=== PATIENT | male | born 1965 | race Caucasian/White ===

== ENCOUNTER 2016-11-12 11:10 | Emergency (ER) | payer BC, OTHER ==
[~2016-11-12] VITALS: Ht 172.7 cm; Wt 79.4 kg
[2016-11-12 11:15] VITALS: TEMP 36.8; Ht 172.7 cm; Wt 79.4 kg
[2016-11-12] MEDS ORDERED: CLON0.5T3 PO (11:42)
[2016-11-12] MEDS ORDERED: ALBUT/IPRATROP 3MG/0.5MG NEB 3 ML VIAL ONE (11:45)
[2016-11-12 11:58] VITALS: O2SAT 93
[2016-11-12 12:03] LABS: BASO % 1.7 %; BASO ABS # 0.12 K/uL (0-0.2); COMPLETE YES; EOS % 13.3 %; HEMATOCRIT 44.2 % (42-52); LYMPH % 18.2 %; LYMPH ABS # 1.29 K/uL (1.2-3.4); MEAN CELL VOLUME 86.5 fL (80-100); MEAN CORPUSCULAR HEMOGLOBIN 30.9 pg (25-34); MEAN CORPUSCULAR HGB CONC 35.7 g/dl (32-36); MEAN PLATELET VOLUME 10.5 fL (7.4-10.4); MONO % 6.9 %; NEUT % 59.9 %; PLATELET COUNT 285 K/uL (130-400); RED BLOOD COUNT 5.11 M/uL (4.7-6.1); WHITE BLOOD COUNT 7.08 K/uL (4.8-10.8)
[2016-11-12 12:05] VITALS: PULSE 71; O2SAT 96
[2016-11-12 12:14] LABS: CREATININE 1.1 mg/dl (0.60-1.40); POTASSIUM 4.1 mmol/L (3.5-5.1)
--- NOTE | 2016-11-12 12:49 | DIAGNOSTIC IMAGING REPORT ---
CHEST 2 VIEWS ROUTINE CLINICAL HISTORY: ASTHMA, PERSISTENT BRONCHOSPASM ?PNEUMONIA COMPARISON STUDY: No previous studies for comparison. FINDINGS: The bones soft tissues and hemidiaphragms are normal. The cardiomediastinal silhouette is normal. The lungs are clear. The pulmonary vasculature is normal. IMPRESSION: Negative chest. Electronically signed by: Mo Bhardwaj M.D. 11/12/2016 12:47 PM Dictated Date/Time: 11/12/2016 12:47 PM
[2016-11-12] MEDS ORDERED: PRED50TA PO (14:09)
[2016-11-12 14:24] VITALS: BP 131/79; PULSE 71; O2SAT 95
--- NOTE | 2016-11-12 18:44 | EMERGENCY ROOM VISIT NOTE ---
History Report prepared by Jessica: [facility] Under the Supervision of: Dr. Sergei Camargo D.O. First contact with patient: 11:44 Chief Complaint: COUGH Stated Complaint: HARD TO BREATHE Nursing Triage Summary: Pt reports he has been having cough and SOB for 3 weeks. Pt has been seen at [facility] and put on a 5 day course of antibiotics with no help. Today pt reports "I am just having a really hard time beathing, especially at night. I have to sit up. " Pt also complains of chest discomfort. Pt has wheezing throughout. History of Present Illness The patient is a 51 year old male who presents to the Emergency Room with complaints of a constant productive cough with yellow mucous beginning 3 weeks ago. The patient states that he was seen in the [facility] last week and has been on cough medicine since his visit with relief of his cough but not his wheezing. He notes that he has been having a difficult time breathing at night and laying down worsens his symptoms. The patient complains of congestion, wheezing, shortness of breath, upper chest discomfort beginning several weeks ago, upper back pain, ear pain, sore throat that is worse in the morning and then clears up. Pt denies headache, fevers, nausea, vomiting, diarrhea, pain with urination, swelling of legs, anyone around him sick, and recent travel. The patient notes that he has been diagnosed with seasonal asthma. He denies any history of diabetes, heart disease, blood clots, cancer, smoking, recent surgeries, and hypertension. Source of History: patient Onset: 3 weeks ago Position: other (global) Quality: other (cough) Timing: constant Modifying Factors (Worsening): other (Laying down) Associated Symptoms: + SOB, + back pain, + chest pain, + sorethroat, No diarrhea, No fevers, No headache, No nausea, No urinary symptoms, No vomiting Note: The patient complains of congestion, wheezing,ear pain. Pt denies headache, fevers, swelling of legs, anyone around him sick, and recent travel. Review of Systems See HPI for pertinent positives & negatives. A total of 10 systems reviewed and were otherwise negative. Past Medical & Surgical Medical Problems: (1) Seasonal asthma Family History No pertinent family history stated. Social History Smoking Status: Never Smoker Marital Status: single Occupation Status: employed Current/Historical Medications Scheduled Prednisone (Prednisone), 50 MG PO DAILY Scheduled PRN Clonazepam (Klonopin), 0.5 MG PO BID PRN for Anxiety Allergies Coded Allergies: No Known Allergies (Unverified , 11/12/16) Physical Exam Vital Signs Date Time Temp Pulse Resp B/P Pulse Ox O2 Delivery O2 Flow Rate FiO2 11/12/16 14:24 71 18 131/79 95 Room Air 11/12/16 12:43 87 18 132/78 96 Room Air 11/12/16 12:05 71 18 96 Room Air 11/12/16 11:58 93 Room Air 11/12/16 11:27 93 Room Air 11/12/16 11:15 36.8 81 18 170/77 94 Room Air Physical Exam GENERAL: sitting up in bed, disheveled, non-toxic, no acute distress EYE EXAM: normal conjunctiva OROPHARYNX: no exudate, no erythema, lips, buccal mucosa, and tongue normal and mucous membranes are moist NECK: supple, no nuchal rigidity, no adenopathy, non-tender LUNGS: Faint wheezing of bilateral lungs. Normal chest wall mechanics HEART: no murmurs, S1 normal and S2 normal ABDOMEN: abdomen soft, non-tender, normo-active bowel sounds, no masses, no rebound or guarding. BACK: Back is symmetrical on inspection and there is no deformity, no midline tenderness, no CVA tenderness. SKIN: no rashes and no bruising UPPER EXTREMITIES: upper extremities are grossly normal. LOWER EXTREMITIES: No pitting edema. Calves are equal bilaterally NEURO EXAM: Normal sensorium, cranial nerves II-XII grossly intact, normal speech, no gross weakness of arms, no gross weakness of legs. Medical Decision & Procedures ER Provider Diagnostic Interpretation: Xray results per the radiologist and my interpretation. CHEST 2 VIEWS ROUTINE FINDINGS: The bones soft tissues and hemidiaphragms are normal. The cardiomediastinal silhouette is normal. The lungs are clear. The pulmonary vasculature is normal. IMPRESSION: Negative chest. Electronically signed by: Mo Bhardwaj M.D. 11/12/2016 12:47 PM Dictated Date/Time: 11/12/2016 12:47 PM Laboratory Results 11/12/16 11:35 Red Blood Count 5.11, Mean Corpuscular Volume 86.5, Mean Corpuscular Hemoglobin 30.9, Mean Corpuscular Hemoglobin Concent 35.7, Mean Platelet Volume 10.5, Neutrophils (%) (Auto) 59.9, Lymphocytes (%) (Auto) 18.2, Monocytes (%) (Auto) 6.9, Eosinophils (%) (Auto) 13.3, Basophils (%) (Auto) 1.7, Neutrophils # (Auto ) 4.24, Lymphocytes # (Auto) 1.29, Monocytes # (Auto) 0.49, Eosinophils # (Auto ) 0.94, Basophils # (Auto) 0.12 11/12/16 11:35 Test 11/12/16 11:35 11/12/16 12:45 White Blood Count 7.08 K/uL (4.8-10.8) Red Blood Count 5.11 M/uL (4.7-6.1) Hemoglobin 15.8 g/dL (14.0-18.0) Hematocrit 44.2 % (42-52) Mean Corpuscular Volume 86.5 fL (80-100) Mean Corpuscular Hemoglobin 30.9 pg (25-34) Mean Corpuscular Hemoglobin Concent 35.7 g/dl (32-36) Platelet Count 285 K/uL (130-400) Mean Platelet Volume 10.5 fL (7.4-10.4) Neutrophils (%) (Auto) 59.9 % Lymphocytes (%) (Auto) 18.2 % Monocytes (%) (Auto) 6.9 % Eosinophils (%) (Auto) 13.3 % Basophils (%) (Auto) 1.7 % Neutrophils # (Auto) 4.24 K/uL (1.4-6.5) Lymphocytes # (Auto) 1.29 K/uL (1.2-3.4) Monocytes # (Auto) 0.49 K/uL (0.11-0.59) Eosinophils # (Auto) 0.94 K/uL (0-0.5) Basophils # (Auto) 0.12 K/uL (0-0.2) RDW Standard Deviation 39.6 fL (36.4-46.3) RDW Coefficient of Variation 12.5 % (11.5-14.5) Immature Granulocyte % (Auto) 0.0 % Immature Granulocyte # (Auto) 0.00 K/uL (0.00-0.02) Anion Gap 7.0 mmol/L (3-11) Est Creatinine Clear Calc Drug Dose 78.6 ml/min Estimated GFR () 90.9 Estimated GFR (Non- 78.4 BUN/Creatinine Ratio 12.0 (10-20) Calcium Level 9.0 mg/dl (8.5-10.1) Troponin I < 0.015 ng/ml (0-0.045) Pro-B-Type Natriuretic Peptide 9 pg/ml (0-450) Influenza Type A Antigen Neg for Influ A (NEG) Influenza Type B Antigen Neg for Influ B (NEG) Laboratory results per my review. Medications Administered Medications (Trade) Dose Ordered Sig/Jim Route Start Time Stop Time Status Last Admin Dose Admin Albuterol/ Ipratropium (Duoneb) 6 ml STK-MED ONCE .ROUTE 11/12/16 11:45 11/12/16 11:48 DC 11/12/16 12:05 6 ML Prednisone (PredniSONE TAB) 60 mg NOW STAT PO 11/12/16 14:07 11/12/16 14:08 DC 11/12/16 14:20 60 MG ECG Indication: SOB/dyspnea Rate (beats per minute): 72 Rhythm: sinus rhythm Findings: other (Normal axis, poor baseline in anterior leads) ED Course ED COURSE: Vital signs were reviewed and showed hypertension The patients medical record was reviewed The above diagnostic studies were performed and reviewed. ED treatments and interventions as stated above. 1145: Duoneb 6ml INH. 1203: The patient was evaluated in room C11. A complete history and physical examination was performed. 1344: I reevaluated and updated the patient. 1412: Upon reevaluation, the patient is hemodynamically stable.I discussed my findings with the patient and he understands and agrees with the treatment plan. Based on the patients age, coexisting illnesses, exam and lab findings the decision to treat as an outpatient was made. The patient remained stable while under my care. The patient appeared well at the time of discharge. Medical Decision Differential diagnoses includes but is not limited to pneumonia, bronchitis, COPD/Asthma exacerbation, pneumothorax, pulmonary embolism, congestive heart failure, acute coronary syndrome Patient is a 51-year-old male who presents the ER for cough, congestion and runny nose which has been present for the past 3 weeks. He notes that has been checked persistent and has not resolved. His been on several different oral medications for the coughing. He does have a history of asthma and does have a inhaler which has not been improving his symptoms. He does not to chest pain but this is been present for the past week and has been unchanged. Is mainly present with coughing. He is at a low risk for PEs and consequently with his symptoms I did not pursue this any further. Chest x-ray shows no focal infiltrate. Influenza A and B were negative. CBC along with BMP were unremarkable. Troponin was negative with chest pain has been present for greater than several days. BNP was negative. EKG was unremarkable as well. Patient was given nebulizer and felt significant better. His wheezing resolved. I did give him a dose of prednisone and he was discharged to continue his current medications. Discussed with Pt concerning signs and symptoms to watch out for. Pt was instructed to follow up with their PCP and discussed with the patient their option to return to the ED at anytime for persistent or worsening symptoms. The appropriate anticipatory guidance and out- patient management, including indications for return to the emergency department , were explained at length to the patient and understood. Impression Primary Impression: URI (upper respiratory infection) Additional Impression: Asthma exacerbation Scribe Attestation The scribe's documentation has been prepared under my direction and personally reviewed by me in its entirety. I confirm that the note above accurately reflects all work, treatment, procedures, and medical decision making performed by me. Departure Information Dispostion Home / Self-Care Prescriptions Prednisone (PREDNISONE) 50 Mg Tab 50 MG PO DAILY for 4 Days, TAB Prov: Sergei Camargo, DO 11/12/16 Referrals No Doctor, Assigned (PCP) Forms HOME CARE DOCUMENTATION FORM, IMPORTANT VISIT INFORMATION Patient Instructions ED Cough Chronic Cause Unkn, ED URI Viral, My [facility] Additional Instructions Please follow up with your primary care doctor with in the next 24 hours. Any worsening of your symptoms, please return to the ED immediately. This includes any persistent fevers greater than 100.4, worsening of her cough, passing out, inability to eat or drink, or any other concerning signs or symptoms from your standpoint. Please take the steroids as prescribed. Problem Qualifiers Primary Impression: URI (upper respiratory infection) URI type: unspecified viral URI Qualified Codes: J06.9 - Acute upper respiratory infection, unspecified; B97.89 - Other viral agents as the cause of diseases classified elsewhere
== END 2016-11-12 14:26 | disposition home or self-care (01) ==
LOC: C.EDB 11:11 → C.EDC 14:26
DX: J06.9 Acute upper respiratory infection, unspecified (principal); J45.901 Unspecified asthma with (acute) exacerbation; B97.89 Other viral agents as the cause of diseases classified elsewhere; Z79.52 Long term (current) use of systemic steroids

== ENCOUNTER 2017-10-08 16:06 | Emergency (ER) | payer BC, OTHER ==
[~2017-10-08] VITALS: Ht 172.7 cm; Wt 68.2 kg
[~2017-10-08 16:06] MED LIST: CLON0.5T3 PO
[2017-10-08 16:47] VITALS: BP 145/88; PULSE 80; TEMP 36.7; O2SAT 98; Ht 172.7 cm; Wt 68.2 kg
== END 2017-10-08 18:00 | disposition left against medical advice (07) ==
LOC: C.EDB 16:08
DX: R07.89 Other chest pain (principal)

== ENCOUNTER 2025-03-07 09:03 | Inpatient (IN) ==
[2025-03-07] MEDS: LIDOCAINE 5% 1 PATCH TD STA (10:02)
[2025-03-07] MEDS: ONDANSETRON INJ 2 MG/ML 2 ML VIAL IV STA (10:03)
[2025-03-07] MEDS: dexAMETHasone**PF** 10 MG/ML VIAL IV ONE (10:03)
[2025-03-07] MEDS: HYDROmorphone INJ 1 MG/ML SYRINGE IV STA (10:03)
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
[2025-03-07 10:17] LABS: Hematocrit (blood only) 36.4 % (42.0-52.0); Hemoglobin 12.6 g/dl (14.0-18.0); Immature Granulocytes # (auto) 0.05 K/uL (0.01-0.20); Immature Granulocytes % (auto) 0.5 %; Mean Corpuscular Hemoglobin 29.9 pg (25.0-34.0); Mean Corpuscular Volume 86.5 fL (80.0-100.0); Platelet Count 380 K/uL (130-400); RDW Standard Deviation 37.3 fL (36.4-46.3); Red Blood Count 4.21 M/uL (4.70-6.10); White Blood Count 10.47 K/ul (4.8-10.8)
--- NOTE | 2025-03-07 10:33 | XRay Report ---
XR hip LT 2V w pelvis HISTORY: 59 years-old Male pain acute pelvic pain COMPARISON: None TECHNIQUE: AP view the pelvis with 2 views of the left hip FINDINGS: Mild osteoarthritis of the hips. No acute fracture, dislocation or avascular necrosis. Unremarkable s oft tissues. Arterial calcifications. IMPRESSION: No acute fracture or dislocation. ACT 112: Negative or not required by law. The above report was generated using voice recognition software. It may contain grammatical, syntax o r spelling errors. Electronically signed by: Juan Purvis M.D. 03/07/2025 10:32 AM
[2025-03-07 10:41] LABS: Blood Urea Nitrogen 24 mg/dl (6-23); Calcium 9.5 mg/dl (8.6-10.3); Carbon Dioxide 23 mmol/L (21-32); Chloride 100 mmol/L (98-107); Glucose 226 mg/dl (70-99(Fasting))
[2025-03-07] MEDS: SODIUM CHLORIDE 0.9% 1,000 ML IV ONE (11:11)
--- NOTE | 2025-03-07 11:26 | History & Physical Report ---
Date of Service March 07, 2025 Assessment & Plan (1) Left hip pain: (2) Lumbar stenosis: (3) Uncontrolled pain: (4) Ambulatory dysfunction: (5) Radiculopathy: (6) Diabetes mellitus: (7) Lyme arthritis: (8) H/O: HTN (hypertension): (9) Hypomagnesemia: Plan #Left hip/leg pain, Lumbar stenosis, Ambulatory dysfunction - pain/ambulatory dysfunction as outpatient >1 month despite PT/OT/chiropractor/medical management and recent steroid injection this past week. No saddle paresthesia or recent trauma or urinary symptoms. Xray hip without acute fracture. Obs med/surgical Dexamethasone 6mg IV daily Pain control: multimodal - oxycodone 5-10 mg 14h, toradol IV, dilaudid IV prn. Trial lyrica over gabapentin (could consider Cymbalta as well for DM/pain control). Continue lidocaine patch, heat Consideration for pain management Fall precautions PT/OT Defer repeat MRI for now - message to Dr Balderrama to review MRI from this past week, consideration for consult pending review/response to treatment Labs in AM w/ B12 as well for completeness #DM II - recent A1c thought 7-9, given steroid use will put in for SSI/pharmacy consult for assistance Monitor/adjustment as needed w ongoing steroids Consideration for Cymbalta for pain for above #Hypomagnesemia- checked w/ cramping --> LOW 1.4, IV replacement ordered and will monitor on repeat #Possible Lyme/Lyme Arthritis - per patient report, w/ recent Doxy use but no bullseye rash but was suspected w/ joint pain. Holding off Doxy for now, check Lyme/tick smear, consider Ceftriaxone given L shift but was on steroids and will monitor. No fever/chills reported #HTN - continue lisinopril, pain control as needed #Mood - continue escitalopram, consider cymabalta as above for pain control adjunct DVT proph: SCDs for now, add chemoproph if remains inpatient. History of Present Illness Chief Complaint: left hip/pain pain, uncontrolled pain, failure outpatient treatment Primary Care Provider: JUAN TonyC 59 yo male with PMHx significant for HTN, DM II presented with LEFT LEG and HIP pain for > 1 month n duration without significant prior trauma noted. Reports recent MRI outpatient with lumbar stenosis and received injection a couple of days ago. Ongoing pain/ambulatory dysfunction requiring walker for ambulation and also noting rx for Doxycycline on 03/05 for thoughts of Lyme given joint pain however does report pain following taking this about 2 hours following. Does have slight pink bump to his left lower thigh. No bladder/bowel dysfunction/saddle paresthesias. Describes the pain as sharp/shooting and grabbing at times, from left buttocks down to the level of the knee , spares the toe. Some weakness w/ reflex to the LEFT knee compared to the right. He has been using ibuprofen, hydrocodone, gabapentin, tizanidine at home without significant benefit. Some heat but not consistent use. Pain initially 12/10 in the ER, received dose of 1mg Dilaudid along with dexamethasone 10mg IV x 1, toradol 10mg IV x 1 and lidocaine patch for pain in the ER. Currently rating pain ~6/10, still appears mildly uncomfortable. Reports started the gabapentin about 8 days ago this past Sunday, but agreeable to trial Lyrica for now. 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 Believes A1c 7-9 range recently. Pharmacy to be consulted for glycemic. updated on admission at bedside. No recent fever/chills, chest pain, shortness of breath or nausea/vomiting. Questions/concerns addressed at this time. Xray negative for acute fracture. Allergies Allergy/AdvReac Type Severity Reaction Status Date / Time No Known Allergies Allergy Unverified 03/07/25 11:08 Home Medications Medication Instructions Recorded Confirmed Type atorvastatin 10 mg tablet 10 mg PO HS 03/07/25 03/07/25 History doxycycline hyclate 100 mg tablet 100 mg PO Q12H 03/07/25 03/07/25 History dulaglutide 3 mg/0.5 mL 3 mg subcut WK 03/07/25 03/07/25 History subcutaneous pen injector (Trulicity) escitalopram oxalate 10 mg tablet 10 mg PO QAM 03/07/25 03/07/25 History gabapentin 300 mg capsule 300 - 900 mg PO HS 03/07/25 03/07/25 History hydrocodone 5 mg-acetaminophen 325 1 tab PO Q6H PRN Pain 03/07/25 03/07/25 History mg tablet ibuprofen 800 mg tablet 800 mg PO TID PRN Pain 03/07/25 03/07/25 History lisinopril 5 mg tablet 5 mg PO QAM 03/07/25 03/07/25 History metformin 1,000 mg tablet 1,000 mg PO BID 03/07/25 03/07/25 History tizanidine 2 mg tablet 2 mg PO TID PRN Pain 03/07/25 03/07/25 History Past Med/Surg History Problem List (Updated 03/07/25 @ 12:14 by Betty Caceres PA-C) Lumbar stenosis Left hip pain Hypomagnesemia Lyme arthritis Ambulatory dysfunction Uncontrolled pain Radiculopathy H/O: HTN (hypertension) Diabetes mellitus URI (upper respiratory infection) (Acute) Medical History (Updated 03/07/25 @ 12:14 by Betty Caceres PA-C) Asthma exacerbation Seasonal asthma Social History Smoking Status: Never smoker Hx Alcohol Use: Yes Alcohol type: beer and hard liquor Hx Substance Use: No Preferred Language: Luxembourger Consumer Credit Counselor Required: No Beliefs That Will Affect Care: None Current Living Situation: Spouse Other Information That Helps Us Care for You: No Feels Safe at Home: Yes Safety Concerns: Feels Safe At This Time Assistive Devices: Crutches and Glasses Review of Systems 2 Review of Systems: All systems reviewed & are unremarkable except as noted in HPI & below Physical Exam 2 Physical Exam: General: 59yo male resting in bed, in room, mild-mod distress/uncomfortable with position changes but NAD Heent; head atraumatic, normocephalic, mmm, trachea midline Resp; even. unlabored, no wheezing, diminished in the bases but on room air CV: RRR, no signfiicant m/r/g, no pitting edema GI: +BS, soft/NT no garcia MSK/Neuro: decreased DTR L knee compared to the R, slight decreased flexion at that hip (increased pain), dorsiflexion/plantar flexion intact but radicular symptoms LLE Psych: AOx3, cooperative Skin: small pink lesion/healed possible bug bite L lower back/lateral aspect, no cellulitis/drainage or fluid collection Results & Data Results & Data Vital Signs (Past 12 Hours) Vital Signs Temp Pulse Pulse Resp BP BP Pulse Ox 03/07/25 11:03 82 17 143/93 H 96 03/07/25 09:09 36.1 C L 92 H 20 149/76 H 100 O2 Del Method 03/07/25 11:03 Room Air 03/07/25 09:09 Room Air Laboratory Results 03/07/25 09:50 03/07/25 10:53 Mag 1.4 Diagnostic Findings Hip/Pelvis X-Ray 03/07/25 09:27 XR hip LT 2V w pelvis HISTORY: 59 years-old Male pain acute pelvic pain COMPARISON: None TECHNIQUE: AP view the pelvis with 2 views of the left hip FINDINGS: Mild osteoarthritis of the hips. No acute fracture, dislocation or avascular necrosis. Unremarkable soft tissues. Arterial calcifications. IMPRESSION: No acute fracture or dislocation. ACT 112: Negative or not required by law. The above report was generated using voice recognition software. It may contain grammatical, syntax or spelling errors. Electronically signed by: Juan Purvis M.D. 03/07/2025 10:32 AM Supervising Physician Co-Signing Physician Notes Patient seen and examined, chart reviewed, case discussed with Betty Caceres PA-C and I agree with the assessment and plan as above except as otherwise noted Labs and images reviewed Joaquín is a 59-year-old male with history of lumbar stenosis and ambulatory dysfunction who presents with worsening pain/ambulatory dysfunction of 1 month. He has had a steroid injection in the past week however has continued to have back pain and limited ambulation. He received dexamethasone on admission in addition to multimodal pain control. Patient has an MRI report with him. This shows moderate to severe lumbar stenosis without cord enhancement. He is somewhat limited by pain but does not appear to have acute progressive lower extremity weakness although does have some left-sided asymmetry.Seen at the bedside. He reports that he has radiating pain from his left back and buttock down to slightly past his knee. He feels he is both limited by pain and a little bit weak in the left. At the bedside he has 5/5 strength to ankle dorsiflexion/plantarflexion, hip flexion, and knee flexion/extension bilaterally. Qualitatively slightly decreased left ankle strength but is able to give strong effort against resistance. He does not have saddle anesthesia, incontinence, or retention. Ortho is consulted for review. Will be admitted on multimodal pain control and reevaluation as noted. Low suspicion for Lyme. He did have joint pain, no bull's-eye rash. Lyme screen is negative, tickborne smear negative, send out confirmation pending. Agree with assessment and management as above PG Care Time/CCT Total # of Minutes Spent Total Time Spent with Patient: Total time spent is greater than 50% in coordination of care (as documented) at patient's floor/unit and/or counseling patient: Coding Level of Care Code 64880 INT INP/OBS CARE 3/75MIN Diagnoses Left hip pain M25.552 Lumbar stenosis M48.061 Uncontrolled pain R52 Ambulatory dysfunction R26.2 Radiculopathy M54.10 Diabetes mellitus E11.9 Lyme arthritis A69.23 H/O: HTN (hypertension) Z86.79 Hypomagnesemia E83.42
[2025-03-07 11:33] LABS: Potassium 4.6 mmol/L (3.5-5.1); Sodium 133.0 mmol/L (136-145)
[2025-03-07] MEDS ORDERED: PREGABALIN 75 MG CAP PO SCH (11:45)
[2025-03-07 11:50] LABS: Magnesium 1.4 mg/dl (1.7-2.4)
[2025-03-07] MEDS: HYDROmorphone INJ 0.5 MG/0.5 ML SYR IV STA ×2 (11:53→12:42)
[2025-03-07] MEDS: KETOROLAC TROMETHAMINE 15 MG/ML VIAL IV ONE (11:55)
[2025-03-07] MEDS: PREGABALIN 75 MG CAP PO ONE (12:07)
[2025-03-07] MEDS: HYDROmorphone INJ 0.5 MG/0.5 ML SYR IV PRN (13:19)
[2025-03-07] MEDS ORDERED: ONDANSETRON INJ 2 MG/ML 2 ML VIAL IV PRN (13:49)
[2025-03-07] MEDS ORDERED: GLUCAGON FOR INJ 1 MG VIAL SQ PRN (13:49)
[2025-03-07] MEDS ORDERED: GLUCOSE 40% GEL 15 GM TUBE PO PRN (13:49)
[2025-03-07] MEDS ORDERED: CARBOHYDRATES FOR HYPOGLYCEMIA PO PRN (13:49)
[2025-03-07] MEDS ORDERED: PHARMACY GLYCEMIC MGMT CONSULT PRN (13:49)
[2025-03-07] MEDS ORDERED: DEXTROSE 50% 50 ML SYRINGE IV PRN (13:49)
[2025-03-07] MEDS ORDERED: GLUCOSE 10 TAB/TUBE PO PRN (13:49)
[2025-03-07 13:59] LABS: Appearance Urine Clear (Clear); Bacteria Urine Automated None Seen (None Seen); Cast Urine Automated 0-2 /lpf (0-2); Epithelial Cell Urine Auto 0-2 /hpf (0-2); Glucose Urine UA 3+ (Negative); RBC Urine Automated 0-2 /hpf (0-2); WBC Urine Automated 0-5 /hpf (0-5)
[2025-03-07] MEDS: MAGNESIUM SULFATE / D5W 1 GM/100 ML BAG IV SCH (14:20)
--- NOTE | 2025-03-07 14:57 | Pharmacy Report ---
Pharmacy Glycemic Short Note 2 - Date of Service March 07, 2025 - Glycemic Short BSG Results (Last 24 hours): 03/07/25 03/07/25 03/07/25 09:50 12:01 13:53 Glucose 226 H POC Glucose 256 H 343 H* 03/07/25 13:57 Glucose POC Glucose 320 H* OUTPATIENT ANTIDIABETIC REGIMEN: * Trulicity 3mg SQ QTH * metformin 1000mg PO BID * HbA1c pending (03/03/25) ASSESSMENT: * Joaquín is a 59 year old male admitted for hip pain with a history of type 2 diabetes mellitus. Reportedly per hospitalist, recent HbA1c 7-9%, will repeat in AM. Pharmacy has been consulted to assist with glycemic management while inpatient. * BSG upon admission elevated, received 10mg IV dexamethasone, BSGs continued to climb. Dexamethasone 6mg IV daily ordered. Will initiated basal insulin at 0.4units/kg now and then daily to help cover steroid induced hyperglycemia. * NovoLog at a weight based stress of 3. PLAN FOR INPATIENT GLYCEMIC CONTROL: * Hold outpatient oral diabetes medications * Basal insulin * Lantus 30 units SQ daily * Bolus insulin * NovoLog per scale ACHS or Q6hrs while NPO * Goal Range: Low 110 mg/dL - High 140 mg/dL * Correction Factor: 20 mg/dL/unit * Nutritional / Prandial insulin per carb ratio of 1 unit per 7 grams CHO consumed
[2025-03-07] MEDS: INSULIN ASPART PER UNIT CHARGE SC ONE ×2 (15:01→17:28)
[2025-03-07] MEDS: LANTUS PER UNIT CHARGE SC SCH ×2 (15:01→21:16)
[2025-03-07] MEDS: KETOROLAC TROMETHAMINE 15 MG/ML VIAL IV PRN (16:29)
[2025-03-07] MEDS: INSULIN ASPART PER UNIT CHARGE SC SCH (17:02)
[2025-03-07] MEDS: ACETAMINOPHEN 325 MG TAB PO PRN (19:30)
[2025-03-07] MEDS: PREGABALIN 75 MG CAP PO SCH (21:17)
[2025-03-07] MEDS: REMOVE LIDODERM PATCH SCH ×2 (21:34→21:35)
[2025-03-07] MEDS: FAMOTIDINE 10 MG TABLET PO SCH (21:34)
[2025-03-08] MEDS: HYDROmorphone INJ 0.5 MG/0.5 ML SYR IV PRN (05:17)
[2025-03-08 06:00] LABS: Hematocrit (blood only) 32.9 % (42.0-52.0); Hemoglobin 11.3 g/dl (14.0-18.0); Mean Corpuscular Hemoglobin 29.5 pg (25.0-34.0); Mean Corpuscular Volume 85.9 fL (80.0-100.0); Platelet Count 360 K/uL (130-400); RDW Standard Deviation 36.0 fL (36.4-46.3); Red Blood Count 3.83 M/uL (4.70-6.10); White Blood Count 10.42 K/ul (4.8-10.8)
[2025-03-08 06:16] LABS: Anion Gap 5.0 (3-11); Blood Urea Nitrogen 30.0 mg/dl (6-23); Calcium 8.9 mg/dl (8.6-10.3); Carbon Dioxide 25.0 mmol/L (21-32); Chloride 104.0 mmol/L (98-107); Creatinine Clr Calc Pharmacy 90.6 ml/min; Glucose 156.0 mg/dl (70-99(Fasting)); Potassium 4.6 mmol/L (3.5-5.1); Sodium 134.0 mmol/L (136-145)
[2025-03-08 06:34] LABS: Thyroid Stimulating Hormone 0.368 uIu/ml (0.300-4.500)
[2025-03-08 08:02] LABS: Hemoglobin A1C 9.0 % (4.5-5.6)
[2025-03-08] MEDS: dexAMETHasone 6 MG in SYRINGE 0 ML IV SCH (08:06)
--- NOTE | 2025-03-08 08:14 | Hospitalist Progress Note ---
Date of Service March 08, 2025 Assessment & Plan (1) Left hip pain: (2) Lumbar stenosis: (3) Uncontrolled pain: (4) Ambulatory dysfunction: (5) Radiculopathy: (6) Diabetes mellitus: (7) Lyme arthritis: (8) H/O: HTN (hypertension): (9) Hypomagnesemia: (10) B12 deficiency: Plan #Left hip/leg pain, Lumbar stenosis, Ambulatory dysfunction - pain/ambulatory dysfunction as outpatient >1 month despite PT/OT/chiropractor/medical management and recent steroid injection this past week and recent MRI (no cord compression noted) No saddle paresthesia or recent trauma or urinary symptoms. Xray hip without acute fracture. Continue Dexamethasone 6mg IV daily Dr Balderrama consult pending Continue pain control: * Oxycodone 5-10mg, toradol IV, dilaudid 0.5-1mg, tizanidine prn spasm * Lyrica 75mg BID over prior gabapentin to see if helpful -- titrate up in AM as able * Continue lidocaine patch, heat * Consider Cymbalta vs pain management consult pending ortho evaluation Bowel regimen w/ miralax daily, colace BID, senna HS added. +BS but no BM since admission Continue fall precautions, PT/OT consults pending Monitor exam/response to treatment above #DM II - recent A1c thought 7-9, repeat w/ AM labs at 9.0 Home trulicity on hold, pharmacy on consult given ongoing steroids for pain control w/ elevated BSGs to 300s last evening --> Improved, POC 125 this morning and monitoring Consideration for Cymbalta as above Likely need adjustment to regimen at discharge #Hypomagnesemia- checked w/ cramping --> LOW 1.4 IV replacement ordered and repeat added for today/further replacement as needed #B12 deficiency- checked w/ neuropathy B12 LOW 172-->IM 1000mcg x 3 ordered, rec to continue PO at dc #Possible Lyme/Lyme Arthritis - per patient report, w/ recent Doxy use but no bullseye rash but was suspected w/ joint pain however no fever/chills reported and has been afebrile. 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 Babesia PCR pending Defer ongoing abx at this time #HTN - continue lisinopril, pain control as needed -- BP 147/74 and will monitor #Mood - continue escitalopram -consider Cymbalta as above for pain control adjunct DVT proph: SCDs for now, add chemoproph if remains inpatient pending ortho eval. pepcid BID for GI proph w/ steroids Dispo: continued inpatient stay for ongoing pain control Admission and Anticipated Discharge Date Admission Date: March 07, 2025 Subjective Evaluated this morning, reported was feeling better until this morning with pain starting again to his left leg, currently reports just got oxycodone and heating pad. Passing gas but no BM since admission, bowel regimen to be added. Ortho consult pending but will continue conservative treatment for now until evaluated. No saddle paresthesias, no loss of bowel/bladder. No fever/chills, CP/SOB. Questions/concerns addressed at this time Physical Exam 2 Physical Exam: General: 59yo male resting in bed, heating pad to left thigh, NAD Heent; head atraumatic, normocephalic, mmm, trachea midline Resp; even. unlabored, no wheezing, diminished in the bases but on room air CV: RRR, no significant m/r/g, no pitting edema GI: +BS, soft/NT no garcia MSK/Neuro: slightly decreased DTR L knee compared to the R, slight decreased flexion at that hip (due to increased pain), dorsiflexion/plantar flexion intact but radicular symptoms LLE from buttocks Psych: AOx3, cooperative Results & Data Results & Data Vital Signs (Past 12 Hours) Vital Signs Temp Pulse Resp BP Pulse Ox O2 Del Method 03/08/25 07:13 36.5 C 68 16 147/74 H 99 Room Air Laboratory Results 03/08/25 05:18 03/08/25 05:18 Mag pending TSH 0.368 B12 172 Lyme negative smear neg for inclusion bodies for anaplasmosis smear Babesia PCR pending PG Care Time/CCT Total # of Minutes Spent Total Time Spent with Patient: Total time spent is greater than 50% in coordination of care (as documented) at patient's floor/unit and/or counseling patient: Coding Level of Care Code 26210 SUB INP/OBS CARE 3/50MIN Diagnoses Left hip pain M25.552 Lumbar stenosis M48.061 Uncontrolled pain R52 Ambulatory dysfunction R26.2 Radiculopathy M54.10 Diabetes mellitus E11.9 Lyme arthritis A69.23 H/O: HTN (hypertension) Z86.79 Hypomagnesemia E83.42 B12 deficiency E53.8
[2025-03-08 08:33] LABS: Magnesium 2.1 mg/dl (1.7-2.4)
[2025-03-08] MEDS: ESCITALOPRAM OXALATE 10 MG TAB PO SCH (08:34)
[2025-03-08] MEDS: LIDOCAINE 5% 1 PATCH TD SCH (08:34)
[2025-03-08] MEDS: POLYETHYLENE (MIRALAX) 17 GM PACK PO SCH (08:41)
[2025-03-08] MEDS: DOCUSATE SODIUM 100 MG CAP PO SCH (08:42)
[2025-03-08] MEDS ORDERED: DEXAMETHASONE SOD INJ 4 MG/ML VIAL IV SCH (09:00)
[2025-03-08] MEDS: CYANOCOBALAMIN 1000 MCG/ML VIAL IM SCH (09:25)
--- NOTE | 2025-03-08 11:24 | Orthopedic Consultation ---
Date of Consultation March 08, 2025 Assessment & Plan (1) Lumbar disc herniation: Assessment #1 lumbar spondylosis with radiculopathy. #2 L3-L4 foraminal extraforaminal disc herniation on the left. Plan at length yesterday with the patient reviewing his MRI findings and clinical course but this time he has severe spinal stenosis L4-L5 with subarticular stenosis. L3-L4 he has moderate midline stenosis facet operatively but large foraminal extraforaminal disc on the left. This undoubtedly contributes to his clinical presentation. He is failed extensive course of nonoperative care is essentially nonfunctional would like to consider surgical invention. Would require a lumbar decompression and fusion L3-L4 L4-L5 this would allow us to adequately decompress the canal address the foraminal disc herniation and stabilize his spine. Risk benefits pros cons and alternatives were all in detail. Risk include but not limited to anesthesia blindness stroke paralysis nerve damage blood loss requiring transfusion infection requiring reoperation events of the improvement of his back and leg pain. At this time we will make him n.p.o. after midnight plan for surgery soon as possible. History of Present Illness Reason for Consultation: Back and left leg pain Attending Physician: Yoni Mcelroy MD History of Present Illness This is a 59-year-old male that is struggling with severe left leg pain. He does have a history of lumbosacral back pain rating to the bilateral buttocks. But over the past month it became severe into the left groin and left thigh. He is undergone lumbar injections without any improvement. He attempted a course of physical therapy but this exacerbated his pain. 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 He does have a history of chronic back issues with the onset of this now acute radiculopathy Allergies Allergy/AdvReac Type Severity Reaction Status Date / Time No Known Allergies Allergy Unverified 03/07/25 11:08 Home Medications Medication Instructions Recorded Confirmed Type atorvastatin 10 mg tablet 10 mg PO HS 03/07/25 03/07/25 History doxycycline hyclate 100 mg tablet 100 mg PO Q12H 03/07/25 03/07/25 History dulaglutide 3 mg/0.5 mL 3 mg subcut WK 03/07/25 03/07/25 [facility] escitalopram oxalate 10 mg tablet 10 mg PO QAM 03/07/25 03/07/25 History gabapentin 300 mg capsule 300 - 900 mg PO HS 03/07/25 03/07/25 History hydrocodone 5 mg-acetaminophen 325 1 tab PO Q6H PRN Pain 03/07/25 03/07/25 History mg tablet ibuprofen 800 mg tablet 800 mg PO TID PRN Pain 03/07/25 03/07/25 History lisinopril 5 mg tablet 5 mg PO QAM 03/07/25 03/07/25 History metformin 1,000 mg tablet 1,000 mg PO BID 03/07/25 03/07/25 History tizanidine 2 mg tablet 2 mg PO TID PRN Pain 03/07/25 03/07/25 History Patient History Medical History Asthma exacerbation Seasonal asthma Social History Smoking Status: Never smoker Hx Alcohol Use: Yes Alcohol type: beer and hard liquor Hx Substance Use: No Preferred Language: Azerbaijani 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 I was able to have him stand for me. He is able to stand on his toes and heels with some assistance. There is marked deficits to the left quadricep compared to the right. D10 reflexes diminished. Results & Data Vital Signs (Past 12 Hours) Vital Signs Temp Pulse Resp BP Pulse Ox O2 Del Method 03/08/25 07:13 36.5 C 68 16 147/74 H 99 Room Air
[2025-03-08] MEDS: SENNA 8.6 MG TAB PO SCH (21:02)
[2025-03-08] MEDS: HYDROmorphone INJ 1 MG/ML SYRINGE IV PRN (21:08)
[2025-03-09] MEDS: INSULIN ASPART PER UNIT CHARGE SC SCH ×2 (05:54→12:30)
[2025-03-09] MEDS: SODIUM CHLORIDE 0.9% 1,000 ML IV SCH (06:43)
[2025-03-09 06:55] LABS: Anion Gap 8.0 (3-11); Blood Urea Nitrogen 30.0 mg/dl (6-23); Calcium 8.8 mg/dl (8.6-10.3); Carbon Dioxide 25.0 mmol/L (21-32); Chloride 103.0 mmol/L (98-107); Creatinine Clr Calc Pharmacy 81.3 ml/min; Glucose 122.0 mg/dl (70-99(Fasting)); Magnesium 1.7 mg/dl (1.7-2.4); Potassium 4.3 mmol/L (3.5-5.1); Sodium 136.0 mmol/L (136-145)
[2025-03-09] MEDS: LANTUS PER UNIT CHARGE SC ONE (08:14)
--- NOTE | 2025-03-09 08:41 | Hospitalist Progress Note ---
Date of Service March 09, 2025 Assessment & Plan (1) Left hip pain: (2) Lumbar stenosis: (3) Uncontrolled pain: (4) Ambulatory dysfunction: (5) Radiculopathy: (6) Diabetes mellitus: (7) Lyme arthritis: (8) H/O: HTN (hypertension): (9) Hypomagnesemia: (10) B12 deficiency: Plan This patient is a 59-year-old male who presented on 03/09 for lumbar radiculopathy and ambulatory dysfunction. #Left hip/leg pain, Lumbar stenosis, Ambulatory dysfunction Pain/ambulatory dysfunction as outpatient >1 month despite PT/OT/chiropractor/medical management and recent steroid injection this past week and recent MRI (no cord compression noted) No saddle paresthesia or recent trauma; no urinary incontinence or urinary symptoms Xray hip without acute fracture Continue Dexamethasone 6mg IV daily Ortho surgery consult appreciated Will plan for OR with Dr. Balderrama on 03/10 N.p.o. at midnight Continue pain control: * Acetaminophen PRN, Toradol IV PRN, Dilaudid IV 0.5-1.0mg PRN, tizanidine PRN spasms * Lyrica 75mg BID over prior gabapentin to see if helpful * Continue lidocaine patch, heat * Consider Cymbalta vs pain management consult pending ortho evaluation Bowel regimen w/ miralax daily, colace BID, senna HS added. +BS but no BM since admission Continue fall precautions, PT/OT consults pending Monitor exam/response to treatment above #DM II Last A1c at 9.0% on 03/08/2025 Hold [facility] glycemic consult appreciated given ongoing steroids for pain control Lantus + SSI T2DM diet for now, then n.p.o. at midnight BSG ACHS for now, then BSG q6h starting at midnight Adjust regimen as needed #Hypomagnesemia-(resolved) Magnesium low 1.4 on arrival; now WNL on 03/09 IV replacement PRN #B12 deficiency- checked w/ neuropathy B12 LOW 172-->IM 1000mcg x 3 ordered Recommend to continue PO at dc #Possible Lyme/Lyme Arthritis - per patient report, w/ recent Doxy use but no bullseye rash but was suspected w/ joint pain however no fever/chills reported and has been afebrile. Did have recent steroids [employer] Holding off Doxy for now, checked Lyme/tick smear -- Lyme negative, smear unimpressive. Babesia PCR still pending on 03/09 Defer ongoing abx at this time #HTN - continue lisinopril #Mood - continue escitalopram Consider Cymbalta as above for pain control adjunct DVT proph: SCDs for now, add chemical PPx if remains inpatient after surgery Pepcid BID for GI PPx w/ steroids Dispo: continued stay on MedSurg; plan for OR with Dr. Balderrama on 03/10 Admission and Anticipated Discharge Date Admission Date: March 07, 2025 Subjective Mr. Montano is laying flat in bed this morning. He reports that he slept okay, but was intermittently woken up due to the pain. Prior to coming to the hospital, he was regularly taking hydrocodone, and ibuprofen as needed for the pain, but this was not alleviating his pain. At present, he is experiencing 7/10 lower back pain with radiation down the left hip to the knee. Constant pain, that is exacerbated by movements. The pain medications given in the hospital have been helping to control his pain, albeit temporarily. He will occasionally have "spikes" with muscle spasms. No prior history of back surgeries. He denies urinary continence or saddle anesthesia. No cardiac history: No history of VA, stroke, CHF, or issues with his kidneys. ROS: Patient endorses lower back pain with radiation down the left leg to the knee, and intermittent numbness/tingling around the knee. Patient denies fever, chills, night sweats, dizziness/lightheadedness when getting up to the bathroom, headaches, chest pain, chest palpitations, SOB, cough, abdominal pain, N/V/D, changes in urinary or bowel habits, urinary continence, or saddle anesthesia. Review of Systems Review of Systems: See HPI above Physical Exam Physical Exam: General: Mild distress secondary to lower back and left leg pain; pleasant affect non-toxic appearing; well-nourished; cooperative; SpO2 99% on RA HEENT: normocephalic, atraumatic; no scleral icterus; PERRLA; vision and hearing grossly intact Neck: supple; no lymphadenopathy; trachea midline Skin: warm, dry without signs of tenting; no cyanosis; no rashes, bruising, lesions, or erythema noted CV: chest wall NTP; RRR; S1/S2 normal; no murmurs/rubs/gallops; pulses intact and symmetric at radial, DP, and PT Lungs: no acute respiratory distress; symmetrical chest wall expansion; clear breath sounds across all lung poon w/o adventitious sounds; no wheezing ABD: Soft, NTP; BS present; no rebound/guarding; no distention MSK: no tics or fasciculations; no edema noted in the LEs b/l, nonerythematous LEs: Patient demonstrates ability to wiggle toes, plantarflex, dorsiflex, and bend knees bilaterally (albeit with pain in the left leg) Neuro: A&Ox3; normal mood and affect; fluent speech; no focal deficits; sensation is intact and symmetric in the feet bilaterally up until the knee, then he reports diminished sensation in the left knee when compared to the right Results & Data Results & Data Vital Signs (Past 12 Hours) Vital Signs Temp Pulse Resp BP Pulse Ox O2 Del Method 03/09/25 07:24 36.8 C 70 18 167/75 H 99 Room Air PG Care Time/CCT Total # of Minutes Spent Total Time Spent with Patient: Total time spent is greater than 50% in coordination of care (as documented) at patient's floor/unit and/or counseling patient: Coding [place] [address] SUB INP/OBS CARE 2/35MIN Patient Type Established History Comprehensive Exam Comprehensive Medical Decision Making Moderate Complexity Diagnoses Left hip pain M25.552 Lumbar stenosis M48.061 Uncontrolled pain R52 Ambulatory dysfunction R26.2 Radiculopathy M54.10 Diabetes mellitus E11.9 Lyme arthritis A69.23 H/O: HTN (hypertension) Z86.79 Hypomagnesemia E83.42 B12 deficiency E53.8
--- NOTE | 2025-03-09 09:20 | Orthopedic Progress Note ---
Date of Service March 09, 2025 Assessment & Plan (1) Lumbar disc herniation: Plan: Assessment lumbar disc herniation with radiculopathy and progressive neurologic deficit. Plan at this time we are planning for surgery tomorrow. He would require a lumbar decompression and fusion L3-L4 L4-L5. All questions were addressed. I will make him n.p.o. after midnight. Admission and Anticipated Discharge Date Admission Date: March 07, 2025 Subjective Patient continues to struggle with severe back and left leg pain with weakness. Physical Exam Physical Exam: On exam he still demonstrates significant quad deficit on the left. Severe discomfort with ambulation. Results & Data Vital Signs (Past 12 Hours) Vital Signs Temp Pulse Resp BP Pulse Ox O2 Del Method 03/09/25 07:24 36.8 C 70 18 167/75 H 99 Room Air
[2025-03-09] MEDS ORDERED: Nursing to Pharmacy Communication SCH (09:30)
--- NOTE | 2025-03-09 12:39 | Pharmacy Report ---
Pharmacy Glycemic Short Note 2 - Date of Service March 09, 2025 - Glycemic Short BSG Results (Last 24 hours): 03/08/25 03/08/25 03/09/25 16:25 20:46 05:46 Glucose 122 H POC Glucose 251 H 88 03/09/25 03/09/25 03/09/25 05:53 11:51 11:55 Glucose POC Glucose 123 H 306 H* 343 H* OUTPATIENT ANTIDIABETIC REGIMEN: * Trulicity 3mg SQ QTH * metformin 1000mg PO BID * HbA1c pending (03/03/25) ASSESSMENT: 03/08 * Was NPO at midnight last night for possible surgical intervention today. Surgery now anticipated tomorrow. Patient switched to T2DM this AM after AM propmt for Novolog correction was appropriately not administered/needed. Then ate breakfast - CHO not covered due to lack of prompt. Patient also remains on dexamethasone. Combo of which precipated significant hyperglycemia prior to lunch * BSG below goal at HS yesterday after tightening CHO ratio at lunch. Also scheduled for surgery tomorrow. Will loosen CHO ratio back to what it was yesterday AM. * AM fasting BSG in goal range. However, will be NPO tomorrow. Patient not on basal insulin at home. Will therefore split BID and slightly reduce dose today. 03/07 * Joqauín is a 59 year old male admitted for hip pain with a history of type 2 diabetes mellitus. Reportedly per hospitalist, recent HbA1c 7-9%, will repeat in AM. Pharmacy has been consulted to assist with glycemic management while inpatient. * BSG upon admission elevated, received 10mg IV dexamethasone, BSGs continued to climb. Dexamethasone 6mg IV daily ordered. Will initiated basal insulin at 0.4units/kg now and then daily to help cover steroid induced hyperglycemia. * NovoLog at a weight based stress of 3. PLAN FOR INPATIENT GLYCEMIC CONTROL: * Hold outpatient oral diabetes medications * Basal insulin * Lantus 15 units SQ x1 this AM. Additional 5-10 units tonight, depending on BSG * Bolus insulin * NovoLog per scale ACHS or Q6hrs while NPO * Goal Range: Low 110 mg/dL - High 140 mg/dL * Correction Factor: 20 mg/dL/unit * Nutritional / Prandial insulin per carb ratio of 1 unit per 7 grams CHO consumed
[2025-03-10] MEDS: SODIUM CHLORIDE 0.9% 1,000 ML IV SCH (05:58)
[2025-03-10] MEDS: INSULIN ASPART PER UNIT CHARGE SC SCH ×2 (06:04→21:13)
[2025-03-10 06:40] LABS: Hematocrit (blood only) 36.8 % (42.0-52.0); Hemoglobin 12.5 g/dl (14.0-18.0); Mean Corpuscular Hemoglobin 29.6 pg (25.0-34.0); Mean Corpuscular Volume 87.2 fL (80.0-100.0); Platelet Count 426 K/uL (130-400); RDW Standard Deviation 37.9 fL (36.4-46.3); Red Blood Count 4.22 M/uL (4.70-6.10); White Blood Count 10.26 K/ul (4.8-10.8)
[2025-03-10 06:57] LABS: Anion Gap 9.0 (3-11); Blood Urea Nitrogen 33.0 mg/dl (6-23); Calcium 9.4 mg/dl (8.6-10.3); Carbon Dioxide 25.0 mmol/L (21-32); Chloride 102.0 mmol/L (98-107); Creatinine Clr Calc Pharmacy 71.0 ml/min; Glucose 121.0 mg/dl (70-99(Fasting)); Potassium 4.5 mmol/L (3.5-5.1); Sodium 136.0 mmol/L (136-145)
[2025-03-10] MEDS ORDERED: DEXAMETHASONE SOD INJ 4 MG/ML VIAL ONE (09:51)
[2025-03-10] MEDS ORDERED: MIDAZOLAM HCL 1 MG/ML 2ML VIAL ONE (09:51)
[2025-03-10] MEDS ORDERED: LIDOCAINE 2% 2 ML VIAL/AMP(20MG/ML) INFIL ONE (09:51)
[2025-03-10] MEDS ORDERED: PROPOFOL IV EMULSION 10 MG/ML 20 ML VIAL IV ONE (09:51)
[2025-03-10] MEDS ORDERED: ONDANSETRON INJ 2 MG/ML 2 ML VIAL ONE (09:51)
--- NOTE | 2025-03-10 10:30 | History & Physical Bridge Note ---
Date of Service March 10, 2025 History & Physical Bridge Note I have examined the patient, reviewed the History & Physical and in the interval since the performance of the History & Physical I have noted the following changes of clinical significance: no changes noted Patient continues to have severe pain requiring narcotic medications. He has gross neurologic deficit that is not improved. I am recommending emergent decompression fusion L3-L5 to prevent permanent neurologic damage and loss of function.
[2025-03-10] MEDS ORDERED: ROCURONIUM BROMIDE 10 MG/ML 5 ML VIAL IV ONE ×3 (10:57→14:00)
[2025-03-10] MEDS: LACTATED RINGER'S 1,000 ML IV ONE (11:02)
[2025-03-10] MEDS ORDERED: ePHEDrine sulfate 50 MG/5 ML SYR ONE (12:45)
[2025-03-10] MEDS ORDERED: SUGAMMADEX SODIUM 200 MG/2 ML VIAL IV ONE (13:16)
[2025-03-10] MEDS: BUPIVACAINE/EPINEPHRINE 0.5% MPF 1:200,000 30 ML VIAL ONE (13:42)
[2025-03-10] MEDS: FLOSEAL HEMOSTATIC MATRIX 10ML TOP ONE (14:01)
--- NOTE | 2025-03-10 14:02 | Hospitalist Progress Note ---
Date of Service March 10, 2025 Assessment & Plan (1) Lumbar stenosis: (2) Ambulatory dysfunction: (3) Diabetes mellitus: Plan This patient is a 59-year-old male who presented on 03/09 for lumbar radiculopathy and ambulatory dysfunction. Underwent lumbar decompression with Dr. Balderrama on 03/10. #Left hip/leg pain, Lumbar stenosis, Ambulatory dysfunction Pain/ambulatory dysfunction as outpatient >1 month despite PT/OT/chiropractor/medical management and recent steroid injection this past week and recent MRI (no cord compression noted) No saddle paresthesia or recent trauma; no urinary incontinence or urinary symptoms Xray hip without acute fracture. Continue Dexamethasone 6mg IV daily Orthopedic surgery consult appreciated Patient underwent L3-L5 decompression and fusion with Dr. Balderrama on 03/10 Continue pain control: * Acetaminophen PRN, Toradol IV PRN, Dilaudid IV 0.5-1.0mg PRN, tizanidine PRN spasms * Lyrica 75mg BID over prior gabapentin to see if helpful * Continue lidocaine patch, heat * Consider Cymbalta vs pain management consult pending ortho evaluation Bowel regimen w/ miralax daily, colace BID, senna HS added. +BS but no BM since admission PT/OT evaluations appreciated Fall precautions #DM II Last A1c at 9.0% on 03/08/2025 Hold [facility] glycemic consult appreciated given ongoing steroids for pain control Lantus + SSI T2DM diet BSG ACHS Adjust regimen as needed #Hypomagnesemia-(resolved) Magnesium low 1.4 on arrival; now WNL on 03/09 IV replacement PRN #B12 deficiency- checked w/ neuropathy B12 LOW 172-->IM 1000mcg x 3 ordered Recommend to continue PO at dc #Possible Lyme/Lyme Arthritis - per patient report, w/ recent Doxy use but no bullseye rash but was suspected w/ joint pain however no fever/chills reported and has been afebrile. Did have recent steroids GROUND [employer] Holding off Doxy for now, checked Lyme/tick smear -- Lyme negative, smear unimpressive. Babesia PCR still pending on 03/09 Defer ongoing abx at this time #HTN - continue lisinopril #Mood - continue escitalopram Consider Cymbalta as above for pain control adjunct #Anemia-with B12 deficiency likely contributing. TSH checked this admission and is normal - Check iron studies, folate in the morning - Follow CBC DVT proph: SCDs for now following spinal surgery Pepcid BID for GI PPx w/ steroids [facility] Admission and Anticipated Discharge Date Admission Date: March 09, 2025 Supervising Physician Co-Signing Physician Notes PA Supervision Note: I did not personally see or examine the patient today, but I verified all whiting points of NANDO Palencia's assessment and plan with the following exceptions/additions: None Subjective Mr. Montano seen today after surgery with family at bedside. He reports he is doing well, and that his pain is much better following his surgery than it was yesterday. He is having no pain radiation down his left leg. His only pain is in the lower back around the incision site, which she rates as a constant 6 out of 10 pain. No radiation of pain. No numbness or tingling down the legs. The "burning sensation" around his left knee that was present yesterday has resolved. Overall, he is in good spirits. ROS: Patient endorses lower back pain and a dry cough. Patient denies fever, chills, dizziness/lightheadedness with movement, chest pain, chest palpitations, SOB, abdominal pain, nausea or vomiting after the procedure, saddle anesthesia, numbness or tingling going to the legs, pain in his legs, or change in urinary or bowel habits. Review of Systems Review of Systems: See HPI above Physical Exam Physical Exam: General: No acute distress; family at bedside; Shweta hugger in place; pleasant affect; non-toxic appearing; well-nourished; cooperative; SpO2 96% on RA HEENT: normocephalic, atraumatic; no scleral icterus; PERRLA; vision and hearing grossly intact Neck: supple; no lymphadenopathy; trachea midline Skin: warm, dry without signs of tenting; no cyanosis; no rashes, bruising, lesions, or erythema noted CV: chest wall NTP; RRR; S1/S2 normal; no murmurs/rubs/gallops; pulses intact and symmetric at radial, DP, and PT Lungs: no acute respiratory distress; symmetrical chest wall expansion; clear breath sounds across all lung poon w/o adventitious sounds; no wheezing ABD: Soft, NTP; BS present; no rebound/guarding; no distention MSK: no tics or fasciculations; no edema noted in the LEs b/l, nonerythematous; flanks are NTP LEs: Patient demonstrates ability to wiggle toes, plantarflex, dorsiflex, and bend knees bilaterally; patient demonstrates ability to lift legs off the bed to approximately 30 degrees with only mild/moderate discomfort in the back around surgical site Neuro: A&Ox3; normal mood and affect; fluent speech; no focal deficits; sensation is intact and symmetric in the feet bilaterally up until the knee, then he reports diminished sensation in the left knee when compared to the right Results & Data Results & Data Vital Signs (Past 12 Hours) Vital Signs Temp Pulse Resp BP Pulse Ox O2 Del Method 03/10/25 10:53 36.5 C 69 20 135/79 100 Room Air 03/10/25 07:02 36.6 C 79 18 131/81 96 Room Air PG Care Time/CCT Total # of Minutes Spent Total Time Spent with Patient: Total time spent is greater than 50% in coordination of care (as documented) at patient's floor/unit and/or counseling patient: Coding [place] [address] SUB INP/OBS CARE 2/35MIN Patient Type Established Medical Decision Making Moderate Complexity Diagnoses Lumbar stenosis M48.061 Ambulatory dysfunction R26.2 Diabetes mellitus E11.9
[2025-03-10] MEDS: ceFAZolin 330 MG/ML 1 GM VIAL ONE (14:04)
--- NOTE | 2025-03-10 14:17 | Fluoroscopy Report ---
FL lumbar spine 2-3V CLINICAL HISTORY: L3-L4 DECOMPRESSION AND FUSION COMPARISON STUDY: None FLUOROSCOPY TIME: 21 seconds FLUOROSCOPY IMAGES: 3 EXPOSURE DOSE: 11 mGy FINDINGS: Fluoroscopy was provided for lower lumbar fusion. IMPRESSION: Intraoperative fluoroscopy. ACT 112: Negative or not required by law. Electronically signed by: Luis Nguyễn M.D. 03/10/2025 2:16 PM
--- NOTE | 2025-03-10 14:19 | Operative Report ---
Post Operative Report Pre & Post Diagnosis Operation Date: 03/10/25 12:05 Pre-Op Diagnosis: #1 lumbar disc herniation with extraforaminal herniation L3-L4 on the left #2 lumbar spondylosis with radiculopathy #3 lumbar spinal stenosis Post-Op Diagnosis: Same I identified the patient and participated in the time-out.: Yes Procedure Operation Date: 03/10/25 12:05 Actual Procedures #1 lumbar decompression with bilateral medial facetectomies and foraminotomies including excision of herniated disc L3-L4 L4-5 #2 posterior spinal fusion L3-L5 #3 placement posterior instrumentation L3-L5 using camber. #4 interbody fusion L3-L4 L4-5 and #5 placement Spira 14 x 26 mm x 2 at L3-L4 and 13 x 26 mm x 2 at L4-L5. #6 placement locally harvested morselized autograft posterior gutters. #7 placement infuse collagen sponge, with Koros in the posterior lateral gutters and os design interbody space. #8 application of versa wrap of the exposed dura. Surgeon Garcia Balderrama, Chalk Molding Machine Operator Laura Bustamante Estimated Blood Loss 150 Findings Consistent with Post-Op Diagnosis Specimens None Indications This is a 59-year-old male who presents with marked decline in neurologic status severe radicular pain and progressive weakness. Subsequently he is here for emergent decompression fusion Description of Procedure Patient was met with identified informed consent obtained. Patient was then taken to the operative suite underwent patient placed in prone position on the Yonis table top of the Nathanael frame. All bony prominences well-padded eyes inspected to ensure no external precipice upon them. This point the lumbar spine was prepped and draped in normal sterile fashion. Sharp dissection with the assistance of Bovie cautery from down to and exposing the lamina and transverse processes of L3-L4-L5 bilaterally. From a [place]et 5 fashion complete laminectomy of L4 was performed including bilateral medial facetectomies and foraminotomies addressing severe subarticular and foraminal stenosis. This followed by complete laminectomy of L4 3 with bilateral medial facetectomies and foraminotomies including excision of extraforaminal foraminal disc herniation on the left. Pedicle screws were then placed at L3 L4-5 bilaterally with assistance of fluoroscopy and appropriate sized hector placed. By way of transforaminal approach on the right discectomy of L4-L5 was performed endplates corrected to subcortical bleeding bone and a 13 x 26 mm spiral cage tapped in position. Then proceeded to the left transforaminal region at L4-5. Again discectomy performed. Endplates guided to subcortically bone and a second 13 x 26 mm spiral cage tapped into position. I then proceeded L3-L4. By way of transforaminal posterior left a discectomy was performed endplates guided to subcortical bleeding bone and a 14 x 26 mm spiral cage tapped in position. Then proceeded to the right transforaminal region at L3-L4. Again discectomy performed. Endplates guided to subcortical bleeding bone and a second 14 x 26 mm spiral cage tapped in position. Please note all cages were packed with os design bone graft. The rods were then compressed locked in a final position bilaterally. The transverse processes of L3 L4-5. To subcortical bleeding bone. Infuse collagen sponge, with Koros and local autograft placed in the posterior gutters. Versa wrap placed of exposed dura. 15 round WILMA drain inserted. The incision was then closed with 1 Vicryl the fascia 2-0 Vicryl subcutaneously and 4 Monocryl for final skin closure. Steri-Strips and sterile dressing placed. Patient waken taken to the PACU in stable condition. Please note Laura Bustamante was present at the entire procedure and from patient positioning complex portion of the surgery and final skin closure. I attest to the content of the Intraoperative Record and any orders documented therein. Any exceptions are noted below.
[2025-03-10] MEDS ORDERED: ATROPINE SULFATE 0.1 MG/ML 10ML SYR IV PRN (14:37)
[2025-03-10] MEDS ORDERED: ONDANSETRON INJ 2 MG/ML 2 ML VIAL IV PRN ×2 (14:37→15:35)
[2025-03-10] MEDS ORDERED: HYDROmorphone INJ 2 MG/ML SYR/VIAL IV PRN (14:37)
--- NOTE | 2025-03-10 14:37 | Anesthesiology Progress Note ---
Date of Service March 10, 2025 Anesthesia Post Procedure Vital Signs Vital Signs: Temp Pulse Resp BP Pulse Ox O2 Del Method 03/10/25 10:53 97.7 F 69 20 135/79 100 Room Air 03/10/25 07:02 97.9 F 79 18 131/81 96 Room Air 03/10/25 00:41 72 148/76 H 03/09/25 19:23 98.2 F 70 16 171/73 H 99 Room Air Pain Intensity Left Hip: Pain Intensity: 7 Bilateral Lower Back: Pain Intensity: 0 Transfer of Care Handoff Completed per policy Notes Mental Status: alert / awake / arousable and participated in evaluation Patient Amnestic to Procedure: Yes Nausea / Vomiting: adequately controlled Pain: adequately controlled Airway Patency, RR, SpO2: stable & adequate BP & HR: stable & adequate Hydration State: stable & adequate Anesthetic Complications: no major complications apparent and Pt Satisfied with anesthetic care
--- NOTE | 2025-03-10 15:02 | Pharmacy Report ---
Pharmacy Glycemic Short Note 2 - Date of Service March 10, 2025 - Glycemic Short BSG Results (Last 24 hours): 03/09/25 03/09/25 03/10/25 16:26 20:05 05:54 Glucose POC Glucose 171 H 186 H 113 H 03/10/25 03/10/25 03/10/25 06:16 10:54 14:31 Glucose 121 H POC Glucose 133 H 165 H OUTPATIENT ANTIDIABETIC REGIMEN: * Trulicity 3mg SQ QTH * metformin 1000mg PO BID * HbA1c pending (03/03/25) ASSESSMENT: 03/10 * Joaquín received 55 units of insulin yesterday (25 were basal) * Fasting BSG thiS AM in goal range, was NPO overnight for procedure this AM. Now is POD#0 status post lumbar decompression/fusion. Received 8mg IV dexamethasone preoperatively, will give 0.4 units/kg to cover with dinner. * NovoLog continues at a weight based stress of 3, likely will need loosened as no ongoing steroids ordered at this time. 03/08 * Was NPO at midnight last night for possible surgical intervention today. Surgery now anticipated tomorrow. Patient switched to T2DM this AM after AM propmt for Novolog correction was appropriately not administered/needed. Then ate breakfast - CHO not covered due to lack of prompt. Patient also remains on dexamethasone. Combo of which precipated significant hyperglycemia prior to lunch * BSG below goal at HS yesterday after tightening CHO ratio at lunch. Also scheduled for surgery tomorrow. Will loosen CHO ratio back to what it was yesterday AM. * AM fasting BSG in goal range. However, will be NPO tomorrow. Patient not on basal insulin at home. Will therefore split BID and slightly reduce dose today. 03/07 * Joaquín is a 59 year old male admitted for hip pain with a history of type 2 diabetes mellitus. Reportedly per hospitalist, recent HbA1c 7-9%, will repeat in AM. Pharmacy has been consulted to assist with glycemic management while inpatient. * BSG upon admission elevated, received 10mg IV dexamethasone, BSGs continued to climb. Dexamethasone 6mg IV daily ordered. Will initiated basal insulin at 0.4units/kg now and then daily to help cover steroid induced hyperglycemia. * NovoLog at a weight based stress of 3. PLAN FOR INPATIENT GLYCEMIC CONTROL: * Hold outpatient oral diabetes medications * Basal insulin * Lantus 30 units SQ x1 QDD, reassess basal insulin in AM * Bolus insulin * NovoLog per scale ACHS or Q6hrs while NPO * Goal Range: Low 110 mg/dL - High 140 mg/dL * Correction Factor: 20 mg/dL/unit * Nutritional / Prandial insulin per carb ratio of 1 unit per 7 grams CHO consumed
[2025-03-10] MEDS ORDERED: DO NOT ADMINISTER PNEUMOCOCCAL VACCINE PRN (15:35)
[2025-03-10] MEDS ORDERED: FAMOTIDINE 20 MG TAB PO PRN (15:35)
[2025-03-10] MEDS ORDERED: NALOXONE HCL 0.4 MG/1 ML VIAL/CARP IV PRN (15:35)
[2025-03-10] MEDS ORDERED: SOD PHOSPHATE/SOD BIPHOSPHATE ENEMA 132 ML BTL PR PRN (15:35)
[2025-03-10] MEDS ORDERED: ALUMINUM/MAGNESIUM SUSP 30 ML UDC PO PRN (15:35)
[2025-03-10] MEDS ORDERED: MAGNESIUM HYDROXIDE SUSP 30 ML UDC PO PRN (15:35)
[2025-03-10] MEDS ORDERED: LORazepam 0.5 MG TAB PO PRN (15:35)
[2025-03-10] MEDS ORDERED: ONDANSETRON 4 MG OD TAB PO PRN (15:35)
[2025-03-10] MEDS ORDERED: HYDROmorphone INJ 0.5 MG/0.5 ML SYR IV PRN (15:35)
[2025-03-10] MEDS ORDERED: DO NOT ADMINISTER FLU VACCINE PRN (15:35)
[2025-03-10] MEDS ORDERED: diphenhydrAMINE Capsule 25 MG CAP PO PRN (15:35)
[2025-03-10] MEDS ORDERED: PROMETHAZINE 12.5 MG/50.5 ML BAG IV PRN (15:35)
[2025-03-10] MEDS ORDERED: METOCLOPRAMIDE HCL INJ 5 MG/ML 2 ML VIAL IV PRN (15:35)
[2025-03-10] MEDS ORDERED: ACETAMINOPHEN 500 MG TAB PO PRN (15:35)
[2025-03-10] MEDS ORDERED: ACETAMINOPHEN 1,000 MG/100 ML VIAL IV PRN (15:35)
[2025-03-10] MEDS: HYDROmorphone INJ 1 MG/ML SYRINGE IV PRN (15:55)
[2025-03-10] MEDS: Nursing to Pharmacy Communication SCH (17:03)
[2025-03-10] MEDS: INSULIN ASPART PER UNIT CHARGE SC STA (17:34)
[2025-03-10] MEDS: LANTUS PER UNIT CHARGE SC ONE (17:35)
[2025-03-10] MEDS: DOCUSATE SODIUM/SENNA 50/8.6MG TAB PO SCH (21:12)
[2025-03-11] MEDS: POLYETHYLENE (MIRALAX) 17 GM PACK PO SCH (05:13)
[2025-03-11 06:56] LABS: Hematocrit (blood only) 28.8 % (42.0-52.0); Hemoglobin 9.7 g/dl (14.0-18.0); Immature Granulocytes # (auto) 0.03 K/uL (0.01-0.20); Immature Granulocytes % (auto) 0.3 %; Mean Corpuscular Hemoglobin 30.3 pg (25.0-34.0); Mean Corpuscular Volume 90.0 fL (80.0-100.0); Platelet Count 313 K/uL (130-400); RDW Standard Deviation 39.0 fL (36.4-46.3); Red Blood Count 3.20 M/uL (4.70-6.10); White Blood Count 9.64 K/ul (4.8-10.8)
[2025-03-11 07:13] LABS: Anion Gap 7.0 (3-11); Blood Urea Nitrogen 22.0 mg/dl (6-23); Calcium 8.5 mg/dl (8.6-10.3); Carbon Dioxide 27.0 mmol/L (21-32); Chloride 102.0 mmol/L (98-107); Creatinine Clr Calc Pharmacy 78.1 ml/min; Glucose 149.0 mg/dl (70-99(Fasting)); Iron 47.0 mcg/dl (35-175); Potassium 4.4 mmol/L (3.5-5.1); Sodium 136.0 mmol/L (136-145); Total Iron Binding Cap Calc 346.0 mcg/dl (250-450); Transferrin 247.0 mg/dl (200-360); Transferrin (FE) Percent Satur 14.0 % (20-50)
[2025-03-11 07:31] LABS: Ferritin 333.1 ng/ml (8-388)
[2025-03-11] MEDS: LANTUS PER UNIT CHARGE SC SCH (08:13)
[2025-03-11] MEDS: dexAMETHasone 6 MG in SYRINGE 0 ML IV SCH (08:14)
--- NOTE | 2025-03-11 11:00 | Hospitalist Progress Note ---
Date of Service March 11, 2025 Assessment & Plan (1) Lumbar stenosis: (2) Ambulatory dysfunction: (3) Acute blood loss anemia: (4) Diabetes mellitus: Plan This patient is a 59-year-old male who presented on 03/09 for lumbar radiculopathy and ambulatory dysfunction. Underwent lumbar decompression with Dr. Balderrama on 03/10. #Left hip/leg pain, Lumbar stenosis, Ambulatory dysfunction Pain/ambulatory dysfunction as outpatient >1 month despite PT/O T/chiropractor/medical management and recent steroid injection this past week and recent MRI (no cord compression noted) No saddle paresthesia or recent trauma; no urinary incontinence or urinary sym ptoms Xray hip without acute fracture. Continue Dexamethasone 6mg IV daily Orthopedic surgery consult appreciated Patient underwent L3-L5 decompression and fusion with Dr. Balderrama on 03/10 Continue pain control: * Acetaminophen PRN, Toradol IV PRN, Dilaudid IV 0.5-1.0mg PRN, tizanidine PRN spasms * Lyrica 75mg BID over prior gabapentin to see if helpful * Continue lidocaine patch, heat * Consider Cymbalta vs pain management consult pending ortho evaluation Bowel regimen w/ miralax daily, colace BID, senna HS added. +BS but no BM since admission PT/OT evaluations appreciated Discharge to home with his expected once medically stable Fall precautions #Anemia blood loss anemia With B12 deficiency likely contributing TSH checked this admission and was normal Initial Hgb 12.6, postop Hgb 9.7 on POD #1; EBL 150 cc, WILMA drainage 495 cc Continue to trend Hgb for stability Hold chemical DVT PPx Unclear what patient's baseline is as hemoglobin was 12.6 on arrival (no prior records) Ferritin saturation fairly low on arrival Patient reports he was previously on iron supplements, but denies history of JOSE Did have a colonoscopy performed last summer 2023 in [place]; patient is unsure where, but reports that the colonoscopy was unremarkable Recommend outpatient GI follow-up for possible EGD #B12 deficiency- checked w/ neuropathy B12 LOW 172-->IM 1000mcg x 3 ordered Recommend to continue PO at dc ? 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 Babesia PCR still pending on 03/09 Defer ongoing antibiotics at this time #HTN - continue lisinopril #Mood - continue escitalopram Consider Cymbalta as above for pain control adjunct DVT proph: SCDs for now following spinal surgery Pepcid BID for GI PPx w/ steroids Dispo: continued stay on MedSurg Admission and Anticipated Discharge Date Admission Date: March 09, 2025 Supervising Physician Co-Signing Physician Notes NANDO Supervision Note: I did not personally see or examine the patient today, but I verified all whiting points of NANDO Palencia's assessment and plan with the following exceptions/additions : None Subjective Mr. Montano is sitting upright in his chair watching TV this morning. He reports that he slept on and off last night, and was awoken several times due to the lower back pain. However, he is having minimal pain at rest at this time; he reports it is 4 out of 10 at rest, and 8 out of 10 with movements. No radiation down the legs. He reports that his current pain regimen is working; "takes the edge off". Patient is eating and drinking okay. He reports he was able to ambulate to the bathroom today, and did have a bowel movement. No saddle anesthesia. No fevers. His only concern at this time is that the "burning sensation" in the medial left knee returned this morning that was present prior to his surgery. He is unsure if it is related to his back. In regard to his low iron/Hgb levels on arrival, patient does report he was on iron supplements or "boosters" in the past. No prior history of JOSE to his knowledge. He did have a colonoscopy last summer 2023 for in [place]. He is unsure precisely where he had this done, but was told that the colonoscopy was unremarkable, and he did not have any issues. ROS: Patient endorses lower back pain (worse with movements), and mild burning sensation in the medial left knee. Patient denies fever, chills, dizziness/lightheadedness with movement, chest pain, chest palpitations, SOB, abdominal pain, nausea or vomiting after the procedure, saddle anesthesia, numbness or tingling going to the legs, pain radiation down the legs, or change in urinary or bowel habits. Review of Systems Review of Systems: See HPI above Physical Exam Physical Exam: General: No acute distress; sitting upright in his chair; pleasant affect; non- toxic appearing; well-nourished; cooperative; SpO2 99% on RA HEENT: normocephalic, atraumatic; no scleral icterus; PERRLA; vision and hearing grossly intact Neck: supple; trachea midline Skin: warm, dry without signs of tenting; no cyanosis; no rashes, bruising, lesions, or erythema noted CV: chest wall NTP; RRR; S1/S2 normal; no murmurs/rubs/gallops; pulses intact and symmetric at radial, DP, and PT Lungs: no acute respiratory distress; symmetrical chest wall expansion; clear breath sounds across all lung poon w/o adventitious sounds; no wheezing ABD: Soft, NTP; BS present; no rebound/guarding; no distention Back: Upper spine NTP; lower spine TTP surrounding the surgical incision site; drain in place; surgical dressing in place without signs of drainage, erythema, or infection MSK: no tics or fasciculations; no edema noted in the LEs b/l, nonerythematous; flanks are NTP LEs: Patient demonstrates ability to wiggle toes, plantarflex, dorsiflex, and bend knees bilaterally Neuro: A&Ox3; normal mood and affect; fluent speech; no focal deficits; sensation is intact and symmetric in the feet bilaterally up until the knee, then he reports diminished sensation in the left knee when compared to the right Results & Data Results & Data Vital Signs (Past 12 Hours) Vital Signs Temp Pulse Pulse Resp BP Pulse Ox O2 Del Method 03/11/25 07:29 36.6 C 70 16 123/69 99 Room Air 03/11/25 04:11 36.4 C L 67 16 102/60 98 Room Air 03/10/25 23:59 36.5 C 70 16 99/56 L 97 Room Air PG Care Time/CCT Total # of Minutes Spent Total Time Spent with Patient: Total time spent is greater than 50% in coordination of care (as documented) at patient's floor/unit and/or counseling patient: C[place] [address] SUB INP/OBS CARE 2/35MIN Patient Type Established Medical Decision Making Moderate Complexity Diagnoses Lumbar stenosis M48.061 Ambulatory dysfunction R26.2 Acute blood loss anemia D62 Diabetes mellitus E11.9
--- NOTE | 2025-03-11 11:09 | Orthopedic Progress Note ---
Date of Service March 11, 2025 Assessment & Plan (1) Lumbar disc herniation: Plan: At this time we will continue physical therapy monitor his WILMA output hopefully discharge home the next few days. Admission and Anticipated Discharge Date Admission Date: March 09, 2025 Subjective Back pain is controlled left leg symptoms markedly improved. Physical Exam Physical Exam: Patient is up and ambulating with his walker. He is comfortable. Good strength testing. Results & Data Vital Signs (Past 12 Hours) Vital Signs Temp Pulse Pulse Resp BP Pulse Ox O2 Del Method 03/11/25 10:58 36.8 C 80 16 108/66 96 Room Air 03/11/25 07:29 36.6 C 70 16 123/69 99 Room Air 03/11/25 04:11 36.4 C L 67 16 102/60 98 Room Air 03/10/25 23:59 36.5 C 70 16 99/56 L 97 Room Air
[2025-03-11 15:11] VITALS: RESP 18
[2025-03-12 06:37] LABS: Hematocrit (blood only) 28.2 % (42.0-52.0); Hemoglobin 9.6 g/dl (14.0-18.0); Immature Granulocytes # (auto) 0.04 K/uL (0.01-0.20); Immature Granulocytes % (auto) 0.4 %; Mean Corpuscular Hemoglobin 30.4 pg (25.0-34.0); Mean Corpuscular Volume 89.2 fL (80.0-100.0); Platelet Count 292 K/uL (130-400); RDW Standard Deviation 37.8 fL (36.4-46.3); Red Blood Count 3.16 M/uL (4.70-6.10); White Blood Count 9.35 K/ul (4.8-10.8)
[2025-03-12 07:18] LABS: Anion Gap 4.0 (3-11); Calcium 8.8 mg/dl (8.6-10.3); Carbon Dioxide 31.0 mmol/L (21-32); Chloride 102.0 mmol/L (98-107); Potassium 4.2 mmol/L (3.5-5.1); Sodium 137.0 mmol/L (136-145)
[2025-03-12 07:23] LABS: Blood Urea Nitrogen 18.0 mg/dl (6-23); Creatinine Clr Calc Pharmacy 92.8 ml/min; Glucose 104.0 mg/dl (70-99(Fasting))
[2025-03-12] MEDS: LANTUS PER UNIT CHARGE SC SCH (08:48)
[2025-03-12] MEDS: CYANOCOBALAMIN (B-12) 100 MCG TABLET PO SCH (09:38)
--- NOTE | 2025-03-12 11:12 | Orthopedic Progress Note ---
Date of Service March 12, 2025 Assessment & Plan (1) Lumbar disc herniation: Plan: At this time we will continue physical therapy monitor his WILMA output anticipate discharge home tomorrow. Admission and Anticipated Discharge Date Admission Date: March 09, 2025 Subjective Patient is back pain is controlled but limiting. Leg symptoms improved. He is ambulating well. Physical Exam Physical Exam: Patient is in the chair at the bedside. Discussing the testing. Results & Data Vital Signs (Past 12 Hours) Vital Signs Temp Pulse Resp BP Pulse Ox O2 Del Method 03/12/25 07:15 36.9 C 83 18 126/74 99 Room Air
--- NOTE | 2025-03-12 14:14 | Pharmacy Report ---
Pharmacy Glycemic Short Note 2 - Date of Service March 12, 2025 - Glycemic Short BSG Results (Last 24 hours): 03/11/25 03/11/25 03/11/25 07:37 16:35 19:59 Glucose POC Glucose 116 H 172 H 159 H 03/12/25 03/12/25 03/12/25 06:09 07:20 11:38 Glucose 104 H POC Glucose 111 H 85 OUTPATIENT ANTIDIABETIC REGIMEN: * Trulicity 3mg SQ QTH * metformin 1000mg PO BID * HbA1c pending (03/03/25) ASSESSMENT: 03/12 * Joaquín received a total of 55 units of insulin yesterday (30 units were basal and 25 units were bolus). BSGs were 248-199-152-159mg/dL * Fasting BSG was 111mg/dL this morning. Decreased basal insulin. * Despite receiving 6mg iv dexamethasone this morning, his lunch BSG was only 85mg/dL. Loosened the carb ratio. * 03/13 is the last scheduled dose of dexamethasone, so suspect that insulin needs will be decreased even more following discontinuation of the steroids. 03/10 * Joaquín received 55 units of insulin yesterday (25 were basal) * Fasting BSG thiS AM in goal range, was NPO overnight for procedure this AM. Now is POD#0 status post lumbar decompression/fusion. Received 8mg IV dexamethasone preoperatively, will give 0.4 units/kg to cover with dinner. * NovoLog continues at a weight based stress of 3, likely will need loosened as no ongoing steroids ordered at this time. 03/08 * Was NPO at midnight last night for possible surgical intervention today. Surgery now anticipated tomorrow. Patient switched to T2DM this AM after AM propmt for Novolog correction was appropriately not administered/needed. Then ate breakfast - CHO not covered due to lack of prompt. Patient also remains on dexamethasone. Combo of which precipated significant hyperglycemia prior to lunch * BSG below goal at HS yesterday after tightening CHO ratio at lunch. Also scheduled for surgery tomorrow. Will loosen CHO ratio back to what it was yesterday AM. * AM fasting BSG in goal range. However, will be NPO tomorrow. Patient not on basal insulin at home. Will therefore split BID and slightly reduce dose today. 03/07 * Joaquín is a 59 year old male admitted for hip pain with a history of type 2 diabetes mellitus. Reportedly per hospitalist, recent HbA1c 7-9%, will repeat in AM. Pharmacy has been consulted to assist with glycemic management while inpatient. * BSG upon admission elevated, received 10mg IV dexamethasone, BSGs continued to climb. Dexamethasone 6mg IV daily ordered. Will initiated basal insulin at 0.4units/kg now and then daily to help cover steroid induced hyperglycemia. * NovoLog at a weight based stress of 3. PLAN FOR INPATIENT GLYCEMIC CONTROL: * Hold outpatient diabetes medications * Basal insulin * Lantus 25 units SQ QAM * Bolus insulin * NovoLog per scale ACHS or Q6hrs while NPO * Goal Range: Low 110 mg/dL - High 140 mg/dL * Correction Factor: 20 mg/dL/unit * Nutritional / Prandial insulin per carb ratio of 1 unit per 10 grams CHO consumed
--- NOTE | 2025-03-12 14:49 | Hospitalist Progress Note ---
Date of Service March 12, 2025 Assessment & Plan (1) Lumbar stenosis: (2) Ambulatory dysfunction: (3) Acute blood loss anemia: (4) Diabetes mellitus: Plan This patient is a 59-year-old male who presented on 03/09 for lumbar radiculopathy and ambulatory dysfunction. Underwent lumbar decompression with Dr. Balderrama on 03/10. #Left hip/leg pain, Lumbar stenosis, Ambulatory dysfunction Pain/ambulatory dysfunction as outpatient >1 month despite PT/O T/chiropractor/medical management and recent steroid injection this past week and recent MRI (no cord compression noted) No saddle paresthesia or recent trauma; no urinary incontinence or urinary sym ptoms Xray hip without acute fracture. Continue Dexamethasone 6mg IV daily Orthopedic surgery consult appreciated Patient underwent L3-L5 decompression and fusion with Dr. Balderrama on 03/10 Continue pain control: * Acetaminophen PRN, Toradol IV PRN, Dilaudid IV 0.5-1.0mg PRN, tizanidine PRN spasms * Lyrica 75mg BID over prior gabapentin to see if helpful * Continue lidocaine patch, heat * Consider Cymbalta vs pain management consult pending ortho evaluation Bowel regimen w/ miralax daily, colace BID, senna HS added. +BS but no BM since admission PT/OT evaluations appreciated Discharge to home with his expected once medically stable Fall precautions #Anemia blood loss anemia With B12 deficiency likely contributing Initial Hgb 12.6 Postop Hgb 9.7->9.6 on POD #2; EBL 150 cc, WILMA drainage 495 cc Continue to trend Hgb, however currently appears to be stable postoperatively Hold chemical DVT PPx Unclear what patient's baseline is as hemoglobin was 12.6 on arrival (no prior records) Ferritin saturation fairly low on arrival Patient reports he was previously on iron supplements, but denies history of JOSE Did have a colonoscopy performed last summer 2023 in [place]; patient is unsure where, but reports that the colonoscopy was unremarkable Recommend outpatient GI follow-up for possible EGD #B12 deficiency- checked w/ neuropathy B12 LOW 172-->IM 1000mcg x 3 ordered Recommend to continue PO at dc ? 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 Babesia PCR still pending on 03/09 Defer ongoing antibiotics at this time #HTN - continue lisinopril #Mood - continue escitalopram Consider Cymbalta as above for pain control adjunct DVT proph: SCDs for now following spinal surgery Pepcid BID for GI PPx w/ steroids Dispo: continued stay on MedSurg; expected discharge on 03/13 Admission and Anticipated Discharge Date Admission Date: March 09, 2025 Supervising Physician Co-Signing Physician Notes PA Supervision Note: I did not personally see or examine the patient today, but I verified all whiting points of NANDO Palencia's assessment and plan with the following exceptions/additions: None Subjective Mr. Montano is in good spirits this morning. He is still having a "jabbing" pain in his lower back, which he rates as 7/10 at worst. Additionally, he continues to have a "[id number]" sensation in his medial left knee. Aside from this, he reports that the pain regimen he is currently on is working, and that his pain is controlled. He has been able to get up in the hallways and ambulate, and reports he was ambulating up and down the hallways with PT earlier today. Patient denies any setbacks such as fevers overnight, or numbness/tingling/pain shooting down the legs. ROS: Patient endorses headache and lower back pain. Patient denies fever, chills, night sweats, dizziness/lightheadedness with ambulation, chest pain, chest palpitations, SOB, cough, abdominal pain, N/V/D, changes in urinary bowel habits, or numbness or tingling going on the legs. Review of Systems Review of Systems: See HPI above Physical Exam Physical Exam: General: No acute distress; sitting upright in his chair; pleasant affect; non- toxic appearing; well-nourished; cooperative; SpO2 94% on RA HEENT: normocephalic, atraumatic; no scleral icterus; PERRLA; vision and hearing grossly intact Neck: supple; trachea midline Skin: warm, dry without signs of tenting; no cyanosis; no rashes, bruising, lesions, or erythema noted CV: chest wall NTP; RRR; S1/S2 normal; no murmurs/rubs/gallops; pulses intact and symmetric at radial, DP, and PT Lungs: no acute respiratory distress; symmetrical chest wall expansion; clear breath sounds across all lung poon w/o adventitious sounds; no wheezing ABD: Soft, NTP; BS present; no rebound/guarding; no distention Back: Upper spine NTP; lower spine TTP surrounding the surgical incision site; drain in place; surgical dressing in place without signs of drainage, erythema, or infection MSK: no tics or fasciculations; no edema noted in the LEs b/l, nonerythematous; flanks are NTP LEs: Patient demonstrates ability to wiggle toes, plantarflex, dorsiflex, and bend knees bilaterally Neuro: A&Ox3; normal mood and affect; fluent speech; no focal deficits; sensation is intact and symmetric in the feet bilaterally up until the knee, then he reports diminished sensation in the left knee when compared to the right Results & Data Results & Data Vital Signs (Past 12 Hours) Vital Signs Temp Pulse Resp BP Pulse Ox O2 Del Method 03/12/25 14:46 36.9 C 112 H 18 121/73 94 Room Air 03/12/25 07:15 36.9 C 83 18 126/74 99 Room Air PG Care Time/CCT Total # of Minutes Spent Total Time Spent with Patient: Total time spent is greater than 50% in coordination of care (as documented) at patient's floor/unit and/or counseling patient: [place] [address] SUB INP/OBS CARE 2/35MIN Patient Type Established Medical Decision Making Moderate Complexity Diagnoses Lumbar stenosis M48.061 Ambulatory dysfunction R26.2 Acute blood loss anemia D62 Diabetes mellitus E11.9
[2025-03-13 06:16] LABS: Hematocrit (blood only) 28.8 % (42.0-52.0); Hemoglobin 9.8 g/dl (14.0-18.0); Mean Corpuscular Hemoglobin 30.2 pg (25.0-34.0); Mean Corpuscular Volume 88.6 fL (80.0-100.0); Platelet Count 323 K/uL (130-400); RDW Standard Deviation 38.2 fL (36.4-46.3); Red Blood Count 3.25 M/uL (4.70-6.10); White Blood Count 8.41 K/ul (4.8-10.8)
[2025-03-13 06:38] LABS: Anion Gap 6.0 (3-11); Blood Urea Nitrogen 20.0 mg/dl (6-23); Calcium 8.9 mg/dl (8.6-10.3); Carbon Dioxide 29.0 mmol/L (21-32); Chloride 101.0 mmol/L (98-107); Creatinine Clr Calc Pharmacy 95.0 ml/min; Glucose 131.0 mg/dl (70-99(Fasting)); Potassium 4.5 mmol/L (3.5-5.1); Sodium 136.0 mmol/L (136-145)
--- NOTE | 2025-03-13 08:13 | Discharge Summary ---
Date of Service March 13, 2025 Admission HPI Per Admitting Provider 59 yo male with PMHx significant for HTN, DM II presented with LEFT LEG and HIP pain for > 1 month n duration without significant prior trauma noted. Reports recent MRI outpatient with lumbar stenosis and received injection a couple of days ago. Ongoing pain/ambulatory dysfunction requiring walker for ambulation and also noting rx for Doxycycline on 03/05 for thoughts of Lyme given joint pain however does report pain following taking this about 2 hours following. Does have slight pink bump to his left lower thigh. No bladder/bowel dysfunction/saddle paresthesias. Describes the pain as sharp/shooting and grabbing at times, from left buttocks down to the level of the knee , spares the toe. Some weakness w/ reflex to the LEFT knee compared to the right. He has been using ibuprofen, hydrocodone, gabapentin, tizanidine at home without significant benefit. Some heat but not consistent use. Pain initially 12/10 in the ER, received dose of 1mg Dilaudid along with dexamethasone 10mg IV x 1, toradol 10mg IV x 1 and lidocaine patch for pain in the ER. Currently rating pain ~6/10, still appears mildly uncomfortable. Reports started the gabapentin about 8 days ago this past Sunday, but agreeable to trial Lyrica for now. 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 Believes A1c 7-9 range recently. Pharmacy to be consulted for glycemic. updated on admission at bedside. No recent fever/chills, chest pain, shortness of breath or nausea/vomiting. Questions/concerns addressed at this time. Xray negative for acute fracture. Principal Diagnosis Lumbar spondylosis with radiculopathy. Discharge Data Allergies Allergy/AdvReac Type Severity Reaction Status Date / Time No Known Allergies Allergy Unverified 03/07/25 11:08 Consultations 03/07/25 11:23 ED Decision to Admit Stat 03/07/25 15:51 Consult Orthopedic Surgery Routine Procedures Performed Operation Date: 03/10/25 12:05 Actual Procedures p L3-L5 Decompression and Fusion(Not Applicable) - Garcia Balderrama DO Ordered Studies 03/10/25 12:05 FL lumbar spine 2-3V Routine Diabetes Follow up Diabetes Follow-up Needed for HgbA1c >9% Hospital Course (1) Lumbar disc herniation: Patient was admitted with significant lumbar radiculopathy and progressive neurologic deficit. He underwent urgent lumbar decompression fusion. He tolerated this well and progressed appropriately. Leg symptoms improved. Strength improved. WILMA drain decreasing. Subsidy discharged home. Discharge orders and instructions found the chart for further review. Total Time Total Time Spent Total Time Spent (In Minutes): 20 minutes Discharge Plan Discharge Items Patient Disposition: Home - Self-Care Reason For Visit: LEFT HIP/LEFT PAIN, AMBULATORY DYSUNCTION Discharge Diagnosis: Lumbar spondylosis with hernia nucleus pulposus and radiculopathy Condition on Discharge: Fair Activity: As commented below Non-emergency contact: Primary Care Provider Call non-emergency contact if: you have any medication questions Follow-up/Referrals: Phi Narvaez, [facility] [Primary Care Provider] - Diet: Regular Addtl Attending Provider Instructions: ACTIVITY RECOMMENDATIONS: SELF CARE INSTRUCTIONS AFTER THORACIC/LUMBAR FUSIONS 1. You may walk to your tolerance. It is good exercise for your legs and back. Expect some back and intermittent leg aches and pains. 2. You may perform "counter-top" level activities (make a sandwich, jt with a project, etc.). 3. No bending or lifting of more than 10 pounds or back twisting of any nature (roll like a log when turning in bed). 4. You may ride in a car for 20-30 minutes at a time. No driving until after your first visit with your doctor. 5. Frequent changes of position and restricting sitting to 30 minutes at a time will help limit the amount of back spasms and stiffness you may experience. 6. You may discontinue the use of ambulatory aids (cane, crutches, etc.) once your strength and confidence allow. 7. You may technical solutions engineer the shower and let water strike your incision when you arrive home at least once daily. Do not take a tub bath, sit in a hot tub or go into a swimming pool until after your first recheck in the office. 8. You may resume previous diet. SPECIAL CARE INSTRUCTIONS: VERY IMPORTANT TO READ AND REVIEW A. Your surgical incision has been closed with a cosmetic suture under the skin that will dissolve in about 6 weeks. In 14 days, you can use a pair of clean scissors and cut the suture that is left outside of the skin at the ends of your incision. 1. The small skin tapes can be removed 7 days after surgery if they have not fallen off by that point. 2. You may keep the wound open to air as much as possible to promote healing after post-op day number 5 unless told otherwise by your doctor. 3. If you think the wound looks like it is becoming infected (redness or worsening drainage) and/or you are experiencing fever, chill or worsening back pain and muscle spasms, contact the office so that we may evaluate you as soon as possible. B. Complications are uncommon, but please contact us if you have any signs or symptoms of: 1. wound infection (fever higher than 102.5 degrees F, redness, separation of wound, drainage, or increasing pain from the incision) 2. blood clots in legs (pain, swelling, redness and warmth in legs) 3. urinary tract infection (fever higher than 102.5 degrees F, burning upon urination or increased frequency of urination) 4. nerve problems (inability to walk on your toes or heels, numbness, loss of bowel or bladder control) 5. any other symptoms that concern you C. Please call the office at if you have any concerns or questions about your operation or recovery. D. No smoking! Smoking drastically decreases the chance of a solid fusion. E. Do not take any anti-inflammatory medications (Indocin, Advil, Motrin, Aspirin, Naprosyn, etc.) as these may inhibit the chance of a solid fusion. Tylenol is okay to take for pain. MANAGING PAIN AFTER SPINAL SURGERY 1. Narcotic medication is intended for short-term use and will be provided for surgical pain. Surgical pain usually lasts for a period of 4-6 weeks. Narcotic medication includes Percocet, Vicodin, Darvocet, Tylenol #3 or Lortab. 2. Longer-term pain is more appropriately treated with non-narcotic medication such as Tylenol ES. 3. Muscle spasm is not appropriately treated with narcotics. Muscle relaxers such as Soma, Flexeril or Skelaxin can be used along with Tylenol ES. 4. Remember that we all live with some "aches and pains". This is not unusual or uncommon after an injury or as we get older. a. Back pain is expected and may include muscle spasms for 4 to 6 weeks after surgery. The pain should gradually improve. If the pain worsens for no apparent reason, please contact the office. b. Intermittent leg pain may also be experienced and should not be concerned about unless it worsens for no apparent reason. If so, please contact the office. 5. We will provide appropriate medication within the normal guidelines of their prescribed use. We will also be very cautious and aware of potential abuse and extended duration of patients' medication needs. a. Pain medications are for your comfort and to assist with sleep and rest so that the tissue can heal. They are not provided in order to return to normal activity and should not be used through the day. To do so or worsening pain at night can result from ongoing tissue damage and development of tolerance to the prescribed medicine. 6. Please allow 2-3 days to process refills. Prescriptions will not be mailed but must be picked up at the office. FOLLOW UP VISIT: Keep your scheduled follow-up appointment. Any questions, please call the office at . Pending Studies at Discharge: No Stand-Alone Forms: My [facility], Smoking Cessation Medications and DC Order Prescriptions: New tramadol 50 mg tablet 50 mg PO Q6H PRN (Reason: pain, moderate) Qty: 30 0RF oxycodone 5 mg tablet 5 mg PO Q6H PRN (Reason: pain) Qty: 30 0RF Continued tizanidine 2 mg tablet 2 mg PO TID PRN (Reason: Pain) atorvastatin 10 mg tablet 10 mg PO HS ibuprofen 800 mg tablet 800 mg PO TID PRN (Reason: Pain) hydrocodone-acetaminophen 5-325 mg tablet 1 tab PO Q6H PRN (Reason: Pain) metformin 1,000 mg tablet 1,000 mg PO BID gabapentin 300 mg capsule 300 - 900 mg PO HS lisinopril 5 mg tablet 5 mg PO QAM doxycycline hyclate 100 mg tablet 100 mg PO Q12H escitalopram oxalate 10 mg tablet 10 mg PO QAM Trulicity 3 mg/0.5 mL pen injector 3 mg subcut WK Rx Instructions: Discharge Orders: Discharge Order (Routine); Ordered 03/13/25 Ordered By: Garcia Balderrama Admission Data Admit Date/Time: 03/09/25 10:14 Attending Provider: Rosa Guadalupe. Admit Provider: Yoni Mcelroy Primary Care Provider: Phi Narvaez Other Providers: Yoni Mcelroy; Garcia Balderrama
[2025-03-13 08:43] VITALS: BP 106/65; PULSE 72; TEMP 97.7; O2SAT 96
--- NOTE | 2025-03-13 09:10 | Hospitalist Progress Note ---
Date of Service March 13, 2025 Assessment & Plan (1) Lumbar stenosis: (2) Ambulatory dysfunction: (3) Acute blood loss anemia: (4) Diabetes mellitus: Plan This patient is a 59-year-old male who presented on 03/09 for lumbar radiculopathy and ambulatory dysfunction. Underwent lumbar decompression with Dr. Balderrama on 03/10. Note: Discharge summary / orders placed by Dr. Balderrama (Ortho spine). Agree the patient is medically stable on 03/13 and okay for discharge. Hgb trend stable. VSS at time of discharge. #Left hip/leg pain, Lumbar stenosis, Ambulatory dysfunction Pain/ambulatory dysfunction as outpatient >1 month despite PT/OT/chiropracto r/medical management and recent steroid injection this past week and recent MRI (no cord compression noted) No saddle paresthesia or recent trauma; no urinary incontinence or urinary symptoms Xray hip without acute fracture. Orthopedic surgery consult appreciated Patient underwent L3-L5 decompression and fusion with Dr. Balderrama on 03/10 Pain regimen while in the hospital: * Acetaminophen PRN, Toradol IV PRN, Dilaudid IV 0.5-1.0mg PRN, tizanidine PRN spasms * Lyrica was trialed in hospital rather than gabapentin but shruthi resumed on discharge * Continue lidocaine patch, heat Bowel regimen in the hospital: miralax daily, colace BID, senna HS added Oxycodone and tramadol prescribed by orthopedics upon discharge PT/OT evaluations appreciated Discharge to home with his expected once medically stable Fall precautions #Anemia blood loss anemia With B12 deficiency likely contributing Initial Hgb 12.6 Postop Hgb trend: 9.7->9.6 -> 9.8; stable; EBL from surgery 150 cc Hold chemical DVT PPx Unclear what patient's baseline is as hemoglobin was 12.6 on arrival (no prior records) Ferritin saturation fairly low on arrival Patient reports he was previously on iron supplements, but denies history of JOSE Did have a colonoscopy performed last summer 2023 in [place]; patient is unsure where, but reports that the colonoscopy was unremarkable Recommend outpatient GI follow-up #B12 deficiency- checked w/ neuropathy B12 LOW 172-->IM 1000mcg x 3 ordered ? 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 Babesia PCR still pending on 03/09 Defer ongoing antibiotics at this time #HTN - continue lisinopril #Mood - continue escitalopram Consider Cymbalta as above for pain control adjunct Disposition: Discharged to home Admission and Anticipated Discharge Date Admission Date: March 09, 2025 Supervising Physician Co-Signing Physician Notes NANDO Supervision Note: I did not personally see or examine the patient today, but I verified all whiting points of NANDO Palencia's assessment and plan with the following exceptions/ad ditions: None Subjective Mr. Montano is in good spirits this morning. He reports he slept "more than usual" last night. He was able to sleep on his back, and was having some significant lower back pain this morning (8 out of 10), but was given oxycodone, and he reports it is now around a 4 out of 10. No difficulty with eating or drinking. He has been ambulating throughout the hallways with his walker regularly in an attempt to stay active. He is still having some discomfort in his lower back, as well as his left hip, but overall he feels like he is ready to go home today. Patient reports that his picked up pain medicine from their pharmacy yesterday, as they were expecting the pharmacy to be closed today for the March 13 holiday. ROS: Patient endorses lower back pain. Patient denies fever, chills, night sweats, dizziness/lightheadedness with ambulation, chest pain, chest palpitations, SOB, cough, abdominal pain, N/V/D, saddle anesthesia, urinary/fecal incontinence, changes in urinary bowel habits, or numbness or tingling going on the legs. Review of Systems Review of Systems: See HPI above Physical Exam Physical Exam: General: No acute distress; sitting upright in his bed; pleasant affect; non- toxic appearing; well-nourished; cooperative; SpO2 96% on RA HEENT: normocephalic, atraumatic; no scleral icterus; PERRLA; vision and hearing grossly intact Neck: supple; trachea midline Skin: warm, dry without signs of tenting; no cyanosis; no rashes, bruising, lesions, or erythema noted CV: chest wall NTP; RRR; S1/S2 normal; no murmurs/rubs/gallops; pulses intact and symmetric at radial, DP, and PT Lungs: no acute respiratory distress; symmetrical chest wall expansion; clear breath sounds across all lung poon w/o adventitious sounds; no wheezing ABD: Soft, NTP; BS present; no rebound/guarding; no distention Back: Upper spine NTP; lower spine TTP surrounding the surgical incision site; drain in place; surgical dressing in place without signs of drainage, erythema, or infection MSK: no tics or fasciculations; no edema noted in the LEs b/l, nonerythematous; flanks are NTP LEs: Patient demonstrates ability to wiggle toes, plantarflex, dorsiflex, and bend knees bilaterally Neuro: A&Ox3; normal mood and affect; fluent speech; no focal deficits; sensation is intact and symmetric in the feet bilaterally up until the knee, then he reports diminished sensation in the left knee when compared to the right Results & Data Results & Data Vital Signs (Past 12 Hours) Vital Signs Temp Pulse Resp BP Pulse Ox O2 Del Method 03/13/25 08:39 36.5 C 72 18 106/65 96 Room Air PG Care Time/CCT Total # of Minutes Spent Total Time Spent with Patient: Total time spent is greater than 50% in coordination of care (as documented) at patient's floor/unit and/or counseling patient: Coding [place] [address] SUB INP/OBS CARE 2/35MIN Patient Type Established Medical Decision Making Moderate Complexity Diagnoses Lumbar stenosis M48.061 Ambulatory dysfunction R26.2 Acute blood loss anemia D62 Diabetes mellitus E11.9
== END 2025-03-13 11:09 | disposition home or self-care (01) | DRG 427 ==
LOC: 3N 09:03 → ED 09:03 → SUATTDRO 12:09 → 3N 13:40 → SUATTDRO 03-09 10:14
DX: M47.26 Other spondylosis with radiculopathy, lumbar region; M48.061 Spinal stenosis, lumbar region without neurogenic claudication; Z79.84 Long term (current) use of oral hypoglycemic drugs; D62 Acute posthemorrhagic anemia; M51.26 Other intervertebral disc displacement, lumbar region; E11.9 Type 2 diabetes mellitus without complications; I10 Essential (primary) hypertension; Z79.85 Long-term (current) use of injectable non-insulin antidiabetic drugs; E53.8 Deficiency of other specified B group vitamins; A69.23 Arthritis due to Lyme disease; E83.42 Hypomagnesemia